=== PATIENT | male | born 1960 | race Caucasian/White ===

== ENCOUNTER 2019-11-21 14:06 | Emergency (ER) | payer OTHER, SELFPAY ==
--- NOTE | ~2019-11-21 | XR_ITS ---
EXAMINATION: XR tibia fibula RT 2V DATE: 11/21/2019 14:50 INDICATION: Right lower leg pain. TECHNIQUE: 2 views of right tibia and fibula on 4 radiographs were obtained. COMPARISON: None. FINDINGS: Bone alignment is normal. No fracture. There is an intramedullary ismael in right femur. There is mild right knee osteoarthritis. There is a laceration of the lateral lower leg. No radiopaque for eign body. IMPRESSION: 1. No fracture or radiopaque foreign body. Reviewed, dictated and finalized at location A.
[2019-11-21 14:08] VITALS: BP 172/96; PULSE 86; RESP 16; TEMP 37; O2SAT 98
--- NOTE | 2019-11-21 14:37 | ED.LOWEXIN ---
HPI - Extremity Injury (Lower) General Chief Complaint: Extremity Injury, Lower <Paramjit Solo PA-C - Last Filed: 11/21/19 14:40> Stated Complaint: right leg injury <Paramjit Solo PA-C - Last Filed: 11/21/19 14:40> Time Seen by Provider: 11/21/19 14:09 <Paramjit Solo PA-C - Last Filed: 11/21/19 14:40> Source: patient and family <Paramjit Solo PA-C - Last Filed: 11/21/19 14:40> Mode of arrival: ambulatory <Paramjit Solo PA-C - Last Filed: 11/21/19 14:40> Limitations: no limitations <Paramjit Solo PA-C - Last Filed: 11/21/19 14:40> History of Present Illness HPI Narrative: Patient is a 59-year-old male who presents with puncture wound to the right leg that occurred just prior to arrival presents per EMS patient was cutting down a tree when he fell back on a piece of wood that punctured the posterior calf was able to remove the wood notes aching pain worse with activity and movement patient has not been seen for this complaint patient notes his tetanus is up-to-date patient denies other injuries or complaints and presents in no distress <Paramjit Solo PA-C - Last Filed: 11/21/19 14:40> Related Data Home Medications: Home Medications Medication Instructions Recorded Confirmed felodipine mg PO 11/21/19 lisinopril-hydrochlorothiazide tablet 11/21/19 metformin mg PO 11/21/19 simvastatin mg 11/21/19 11/21/19 <Paramjit Solo PA-C - Last Filed: 11/21/19 14:40> Allergies/Adverse Reactions: Allergies Allergy/AdvReac Type Severity Reaction Status Date / Time No Known Allergies Allergy Verified 11/21/19 14:11 <Paramjit Solo PA-C - Last Filed: 11/21/19 14:40> Review of Systems Review of Systems: All systems reviewed & are unremarkable except as noted in HPI and below <Paramjit Solo PA-C - Last Filed: 11/21/19 14:40> PMFSH Past Medical History Medical History: Medical History Diabetes mellitus <Paramjit Solo PA-C - Last Filed: 11/21/19 14:40> Social History Social History: Social History (Updated 11/21/19 @ 14:39 by Paramjit Solo PA-C) Smoking status: Current every day smoker <Paramjit Solo PA-C - Last Filed: 11/21/19 14:40> Exam Narrative: Exam Narrative: GENERAL: Well-appearing, well-nourished, and in no acute distress. HEAD: Normocephalic, atraumatic. EYES: PERRLA and EOMI. ENT: Nares clear, no rhinorrhea or epistaxis. Mucous membranes moist. EXTREMITIES: Normal range of motion. No edema. 1 cm superficial puncture wound to the posterior right calf SKIN: Warm, dry, no rash. Cranial nerves II through XII grossly intact. Neurovascularly intact PSYCH: Normal mood and affect. <Paramjit Solo PA-C - Last Filed: 11/21/19 14:40> Course Vital Signs Vital signs: Vital Signs Temperature 98.6 F 11/21/19 14:08 Pulse Rate 86 11/21/19 14:08 Respiratory Rate 16 11/21/19 14:08 Blood Pressure 172/96 H 11/21/19 14:08 Pulse Oximetry 98 11/21/19 14:08 Temperature 98.6 F 11/21/19 14:08 Pulse Rate 86 11/21/19 14:08 Respiratory Rate 16 11/21/19 14:08 Blood Pressure 172/96 H 11/21/19 14:08 Pulse Oximetry 98 11/21/19 14:08 <Paramjit Solo PA-C - Last Filed: 11/21/19 14:40> Vital Signs Temperature 98.6 F 11/21/19 14:08 Pulse Rate 86 11/21/19 14:08 Respiratory Rate 16 11/21/19 14:08 Blood Pressure 172/96 H 11/21/19 14:08 Pulse Oximetry 98 11/21/19 14:08 Temperature 98.6 F 11/21/19 14:08 Pulse Rate 86 11/21/19 14:08 Respiratory Rate 16 11/21/19 14:08 Blood Pressure 172/96 H 11/21/19 14:08 Pulse Oximetry 98 11/21/19 14:08 <Luna Lofton MD - Last Filed: 11/21/19 15:40> Discharge Plan Discharge Prescriptions: No Action lisinopril-hydrochlorothiazide 20-12.5 mg tablet RF: 0 felodipine 5 mg tablet extended release 24 hr PO RF
== END 2019-11-21 16:01 | disposition home or self-care (01) ==
PROVIDERS: Emergency Provider Emergency Medicine; PCP Internal Medicine
DX: S81.831A Puncture wound without foreign body, right lower leg, initial encounter (principal); E11.9 Type 2 diabetes mellitus without complications; Z79.84 Long term (current) use of oral hypoglycemic drugs; F17.200 Nicotine dependence, unspecified, uncomplicated; W01.118A Fall on same level from slipping, tripping and stumbling with subsequent striking against other sharp object, initial encounter; Y93.H2 Activity, gardening and landscaping
CPT/HCPCS: 73590; 99283

== ENCOUNTER 2020-09-18 12:10 | Outpatient (CLI) | payer OTHER, SELFPAY ==
--- NOTE | ~2020-09-18 | XR_ITS ---
EXAMINATION: XR knee RT 3V DATE: 09/18/2020 12:49 INDICATION: Right knee pain. TECHNIQUE: 3 views of right knee were obtained. COMPARISON: Right tibia and fibula radiographs 11/21/2019 FINDINGS: Bone alignment is normal. No fracture. Partially visualized is an intramedullary ismael in dis christi femur. There is mild osteoarthritis of lateral and patellofemoral compartments characterized by m arginal osteophytes. There is a small knee joint effusion. IMPRESSION: 1. Mild right knee osteoarthritis. 2. Small right knee joint effusion. Reviewed, dictated and finalized at location A.
[2020-09-18 12:24] LABS: Basophils Absolute Auto 0.05 K/mm3 (0.00-0.10); Basophils Percent Auto 0.8 % (0.0-1.0); Eosinophils Absolute Auto 0.27 K/mm3 (0.02-0.50); Eosinophils Percent Auto 4.6 % (1.0-6.0); Hematocrit 46.3 % (40.0-54.0); Hemoglobin 15.6 g/dL (14.0-18.0); Immature Granulocyte Absolute 0.01 K/mm3 (0.00-0.00); Immature Granulocyte Percent A 0.2 % (0.0-0.0); Immature Platelet Fraction Pct 2.2 % (1.0-7.0); Lymphocytes Absolute Auto 1.51 K/mm3 (1.10-4.50); Lymphocytes Percent Auto 25.6 % (18.0-42.0); Mean Corpuscular HGB Conc 33.7 g/dL (32.0-36.0); Mean Corpuscular Hemoglobin 31.5 pg (27.0-31.0); Mean Corpuscular Volume 93.5 fL (78.0-102.0); Monocytes Absolute Auto 0.44 K/mm3 (0.10-0.90); Monocytes Percent Auto 7.5 % (2.0-11.0); Neutrophils Absolute Auto 3.6 K/mm3 (1.7-7.2); Neutrophils Percent Auto 61.3 % (50.0-70.0); Platelet Count Result 130 K/mm3 (150-420); Red Blood Count 4.95 M/mm3 (4.70-6.10); Red Cell Distribution Width 12.7 % (11.6-14.4); White Blood Count 5.9 K/mm3 (4.8-10.8)
[2020-09-18 12:52] LABS: Alanine Aminotransferase 56 U/L (16-63); Albumin Level 3.9 g/dL (3.4-5.0); Alkaline Phosphatase 87 U/L (46-116); Anion Gap 6 mmol/L (8-16); Aspartate Amino Transferase 26 U/L (15-37); Bilirubin,Total 0.5 mg/dL (0.00-1.00); Blood Urea Nitrogen 16 mg/dL (7-18); CRP 0.7 mg/dL (0.0-0.9); Calcium 9.1 mg/dL (8.5-10.1); Carbon Dioxide 29 mmol/L (21-32); Chloride 97 mmol/L (98-108); Estimated Glomerular Filt Rate > 60; Osmolality Calculated 293 mOsm/kg (285-295); Potassium 3.6 mmol/L (3.5-5.1); Sodium 132 mmol/L (136-145); Total Protein 7.5 g/dL (6.4-8.2); Uric Acid 2.7 mg/dL (3.5-7.2)
[2020-09-18 13:23] LABS: Glucose 417 mg/dL (70-99)
== END 2020-09-18 12:11 | disposition home or self-care (01) ==
LOC: CHSLAB 12:13
PROVIDERS: PCP Internal Medicine; Visit Provider Nurse Practitioner Family
DX: M25.561 Pain in right knee (principal)
CPT/HCPCS: 36415; 73562; 80053; 84550; 85025; 85055; 86140

== ENCOUNTER → 2020-10-17 17:51 | Outpatient (CLI) | payer OTHER, SELFPAY ==
--- NOTE | ~2020-10-17 | MR_ITS ---
EXAMINATION: MR knee RT wo con DATE: 10/17/2020 19:01 INDICATION: Right knee pain TECHNIQUE: Magnetic resonance imaging (MRI) of the right knee was performed without intravenous contr ast. Sequences included coronal PD-weighted FSE, coronal PD-weighted FS FSE, sagittal T2-weighted FS E, sagittal PD-weighted FS FSE and axial PD weighted fat saturated FSE. COMPARISON: None. FINDINGS: Medial compartment: Radial tear near the posterior root of the medial meniscus. Extensive chondral ulceration with chondr al surface irregularity and in places deep cartilage loss with underlying cortical irregularity, suba rticular edema and cystic change at the anterior to central weightbearing medial femoral condyle and along the anterior medial margins of the medial tibial plateau. Small marginal osteophytes along the posterior tibial plateau. Lateral compartment: Lateral meniscus is normal. Mild partial thickness cartilage loss with smooth chondral surface and wi thout degenerative subchondral changes along the weightbearing lateral femoral condyle and lateral si de of the tibial plateau. Patellofemoral compartment: Extensive deep chondral ulceration and fissuring with underlying cortical irregularity and prominent subarticular edema and cystic change centered at the patellar apical ridge and immediately adjacent m edial and lateral patellar facets. Additional chondral swelling and deep fissuring without degenerati ve subchondral changes along the inferolateral quadrant of the lateral patellar facet. Additional par tial thickness chondral ulceration and deep fissuring along the trochlear groove and medial trochlea. Small central subchondral osteophyte at the central aspect of the medial trochlea. Ligaments and tendons: Anterior and posterior cruciate ligaments are normal. The medial collateral ligament and fibular teetee ateral ligament complex are normal. Extensor mechanism is normal with bands of magic angle artifact e xtending across the distal patellar tendon where there is some laxity with a small fold. The visualiz ed medial and lateral hamstring tendons as well as the iliotibial band are normal. Fluid: Moderate-sized right knee joint effusion. Mild synovitis at the margin of the suprapatellar pouch and more prominently along the posterior margin of Hoffa's fat pad. Subcutaneous edema about the knee mo st prominent anteriorly but without a discrete bursal fluid collection. Osseous/other: Magnetic paz artifact in the distal metadiaphyseal region of the femur likely related to a metalli c ismael which is partially visualized on the prior radiographs. No fracture or pathologic marrow replac ing process. IMPRESSION: 1. Radial tear near the posterior root of the medial meniscus. 2. Tricompartmental osteoarthritis, moderate severity with extensive high-grade chondromalacia in the medial and lateral compartments and mild with moderate grade chondromalacia in the lateral compartme nt. 3. Likely reactive moderate sized right knee joint effusion. Reviewed, dictated and finalized at location A. IMPRESSION: 1. Radial tear near the posterior root of the medial meniscus. 2. Tricompartmental osteoarthritis, moderate severity with extensive high-grade chondromalacia in the medial and lateral compartments and mild with moderate g rade chondromalacia in the lateral compartment. 3. Likely reactive moderate sized right knee joint effusion.
== END ==
PROVIDERS: PCP Internal Medicine; Visit Provider Internal Medicine
DX: S83.241A Other tear of medial meniscus, current injury, right knee, initial encounter (principal); M17.11 Unilateral primary osteoarthritis, right knee; M25.461 Effusion, right knee; M94.261 Chondromalacia, right knee
CPT/HCPCS: 73721

== ENCOUNTER 2020-11-28 10:47 | Outpatient (CLI) | payer OTHER, SELFPAY ==
--- NOTE | ~2020-11-28 | US_ITS ---
EXAMINATION: US venous doppler LE RT DATE: 11/28/2020 11:29 INDICATION: Right lower limb swelling TECHNIQUE: Jeffrey scale images without and with compression and Doppler images of the right lower extre mity veins were obtained. COMPARISON: None FINDINGS: The right common femoral vein, profunda femoral vein, femoral vein, popliteal vein, peronea l trunk, posterior tibial veins, and greater saphenous vein are patent. IMPRESSION: 1. Patent right lower extremity veins. No evidence of deep venous thrombosis. Reviewed, dictated and finalized at location A.
== END 2020-11-28 10:48 | disposition home or self-care (01) ==
LOC: CHSIMG 10:48
PROVIDERS: PCP Internal Medicine; Visit Provider Orthopaedic Surgery
DX: R60.0 Localized edema (principal)
CPT/HCPCS: 93971

== ENCOUNTER 2021-05-10 12:15 | Outpatient (CLI) | payer OTHER, SELFPAY ==
[2021-05-10 17:37] LABS: Influenza A QL RT-PCR Negative (Negative); Influenza B QL RT-PCR Negative (Negative); SARS-CoV-2 RNA PCR Negative (Negative)
== END 2021-05-10 12:16 | disposition home or self-care (01) ==
LOC: CHSLAB 12:18
PROVIDERS: PCP Internal Medicine; Visit Provider Internal Medicine
DX: J06.9 Acute upper respiratory infection, unspecified (principal); Z20.822 Contact with and (suspected) exposure to COVID-19
CPT/HCPCS: 87502; C9803; U0003; U0005

== ENCOUNTER 2021-08-31 01:01 | Day surgery (SDC) | payer OTHER, SELFPAY ==
[2021-08-28 13:32] VITALS: BMI 42.3
[2021-08-31 07:58] VITALS: BP 150/87; PULSE 71; RESP 18; TEMP 36.2; O2SAT 98; BMI 41.0
[2021-08-31 08:18] LABS: Glucose Point of Care 140 mg/dl (65-105)
[2021-08-31] MEDS: LACTATED RINGERS 1,000 ML 150 ML IV CONT (08:19)
--- NOTE | 2021-08-31 08:32 | P.PNAN_ITS ---
Anes - Initial Pre Proc Eval Procedure: Operation Date: 08/31/21 09:00 Proposed Procedures p Screening Colonoscopy - Tyrel James MD Date/Time: 08/31/21 08:32 Surgeon: Tyrel James MD Pre Op Diagnosis: neoplasm screening Patient Data Age: 60 Gender: M Height: 1.7 m Weight: 118.8 kg Last Vital Signs Temp 36.2 C L 08/31/21 07:58 Pulse 71 08/31/21 07:58 Resp 18 08/31/21 07:58 BP 150/87 H 08/31/21 07:58 Pulse Ox 98 08/31/21 07:58 Allergies Allergy/AdvReac Type Severity Reaction Status Date / Time No Known Allergies Allergy Verified 08/31/21 08:04 Home Medications Medication Instructions Recorded Confirmed Type felodipine 5 mg PO DAILY 11/21/19 08/31/21 History lisinopril-hydrochlorothiazide 2 tablet PO DAILY 11/21/19 08/31/21 History metformin 500 mg PO BID 11/21/19 08/31/21 History simvastatin 20 mg PO DAILY 11/21/19 08/31/21 History meloxicam 15 mg PO DAILY 08/27/21 08/31/21 History semaglutide [Rybelsus] 14 mg PO DAILY 08/27/21 08/31/21 History Laboratory Tests 08/31/21 08:10 POC Capillary Glucose 140 mg/dl H mg/dl (65-105) Patient hx anesthesia problems: none Family hx anesthesia problems: none Results Review: All pre-operative results and documents have been reviewed as part of the pre-operative evaluation. [facility] Past Medical History Medical History Diabetes mellitus GERD (gastroesophageal reflux disease) Hyperlipidemia Hypertension KISHA (obstructive sleep apnea) Social History Social History Smoking packs per day: 1 Smoking cigarettes per day: 20.0 Smoking status: Current some day smoker Tobacco type: cigarettes Substance use type: does not use Living arrangements: with family Spiritual care concerns: No Anes - Eval Final PreProcedure Day of Procedure 08/31/21 08:32 Patient weight: morbidly obese Heart: regular rate and rhythm Lungs: decreased breath sounds Airway: Mallampati scale class II Neurological: alert and oriented Last oral intake: >/= 8 hours ASA classification: III Emergent: no Anesthetic plan: proceed Anesthesia type and monitoring: general GIVS and standard monitoring Results Review: All pre-operative results and documents have been reviewed as part of the pre-operative evaluation. Informed Consent: The patient's anesthetic plan and its attendant risks and benefits were discussed with the patient/family/POA. Questions were solicited and answers provided to the satisfaction of the patient/family/POA.
--- NOTE | 2021-08-31 08:43 | PM.HPGS ---
History of Present Illness History of Present Illness Consent: Risks, benefits, and alternatives have been discussed and questions answered. Patient agrees to proceed with procedure. Chief complaint: neoplasm screening Narrative: Kevin Do Jr. is a 60 year old male here for screening colonoscopy, last one in 2010 Review of Systems Constitutional: Constitutional: Denies headache(s) and Denies weakness Eyes: Eyes: Denies blurry vision ENT: Reports Normal hearing present, Denies headache(s) and Denies neck pain Cardiovascular: Cardiovascular: Denies chest pain and Denies dyspnea Respiratory: Respiratory: Denies dyspnea Gastrointestinal: Gastrointestinal: Reports no additional gastrointestinal complaints Genitourinary: Genitourinary: Denies dysuria Musculoskeletal: Musculoskeletal: Denies neck pain Integumentary/Breasts: Skin/Breast: Denies dry skin Neurologic: Reports Normal hearing present, Denies headache(s) and Denies weakness Psychiatric: Psychiatric: Denies anxiety Endocrine: Endocrine: Denies change in body appearance Hematologic/Lymphatic: Hematologic/Lymphatic: Denies easy bleeding Allergic/Immunologic: Allergic/Immunologic: Denies urticaria PMFSH Past Medical History Medical History (Updated 08/31/21 @ 08:43 by Tyrel James MD) Colon cancer screening Diabetes mellitus GERD (gastroesophageal reflux disease) Hyperlipidemia Hypertension KISHA (obstructive sleep apnea) Social History Social History Smoking packs per day: 1 Smoking cigarettes per day: 20.0 Smoking status: Current some day smoker Tobacco type: cigarettes Substance use type: does not use Living arrangements: with family Spiritual care concerns: No Meds Home Medications and Allergies Home Medications Medication Instructions Recorded Confirmed Type felodipine 5 mg PO DAILY 11/21/19 08/31/21 History lisinopril-hydrochlorothiazide 2 tablet PO DAILY 11/21/19 08/31/21 History metformin 500 mg PO BID 11/21/19 08/31/21 History simvastatin 20 mg PO DAILY 11/21/19 08/31/21 History meloxicam 15 mg PO DAILY 08/27/21 08/31/21 History semaglutide [Rybelsus] 14 mg PO DAILY 08/27/21 08/31/21 History Allergies Allergy/AdvReac Type Severity Reaction Status Date / Time No Known Allergies Allergy Verified 08/31/21 08:04 Vital Signs Vital Signs - 24 hr 08/31/21 07:58 Temperature 97.2 F L Pulse Rate 71 Respiratory Rate 18 Blood Pressure 150/87 H Pulse Oximetry 98 Exam Const: General: comfortable and no acute distress HENMT: General nose exam: Normal nares present Eyes: General: appearance normal, both eyes and all related structures Neck: Neck: no JVD Resp: Auscultation: clear to auscultation bilaterally Cardio: Rate: regular rate Rhythm: regular rhythm GI: Inspection: non-distended GI Palp: Yes Soft to palpation Skin: General skin exam: normal color Neuro: General: gait normal Speech: normal speech Extrem: General: normal to inspection Psych: Mental Status: mental status grossly normal Assessment and Plan Assessment and plan (1) Colon cancer screening: Code(s): Z12.11 - Encounter for screening for malignant neoplasm of colon Status: Acute Assessment and Plan: colonoscopy
[2021-08-31 09:08] VITALS: BP 130/86; PULSE 59; RESP 18; O2SAT 97
[2021-08-31 09:18] VITALS: BP 129/85; PULSE 58; RESP 23; O2SAT 96
[2021-08-31 09:28] VITALS: BP 133/88; PULSE 56; RESP 12; O2SAT 98
== END 2021-08-31 09:34 | disposition home or self-care (01) ==
PROVIDERS: PCP Internal Medicine; Visit Provider Internal Medicine Gastroenterology
PROC: 0DJD8ZZ Inspection of Lower Intestinal Tract, Via Natural or Artificial Opening Endoscopic (ICD-10-PCS; CPT 45378; principal; 2021-08-31 09:00)
DX: Z12.11 Encounter for screening for malignant neoplasm of colon (principal); D12.5 Benign neoplasm of sigmoid colon; K57.30 Diverticulosis of large intestine without perforation or abscess without bleeding; K64.8 Other hemorrhoids; E11.9 Type 2 diabetes mellitus without complications; K21.9 Gastro-esophageal reflux disease without esophagitis; E78.5 Hyperlipidemia, unspecified; I10 Essential (primary) hypertension; G47.33 Obstructive sleep apnea (adult) (pediatric); F17.210 Nicotine dependence, cigarettes, uncomplicated; E66.01 Morbid (severe) obesity due to excess calories; Z68.41 Body mass index [BMI] 40.0-44.9, adult
CPT/HCPCS: 45385; 82948; 88305; J2704; J7120

== ENCOUNTER 2022-01-15 14:16 | Outpatient (CLI) | payer OTHER, SELFPAY ==
[2022-01-15 15:14] LABS: SARS-CoV-2 Ag Negative (Negative)
[2022-01-15 15:52] LABS: SARS-CoV-2 RNA PCR Positive (Negative)
== END 2022-01-15 14:17 | disposition home or self-care (01) ==
LOC: CHSLAB 14:21
PROVIDERS: PCP Internal Medicine; Visit Provider Internal Medicine
DX: U07.1 COVID-19 (principal); J06.9 Acute upper respiratory infection, unspecified
CPT/HCPCS: 87426; C9803; U0003; U0005

== ENCOUNTER 2022-01-18 14:03 | Emergency (ER) | payer OTHER, SELFPAY ==
--- NOTE | ~2022-01-18 | XR_ITS ---
EXAMINATION: XR chest 2V DATE: 01/18/2022 14:59 INDICATION: Shortness of breath. COVID-19 positive. TECHNIQUE: Frontal and lateral views of the chest were obtained. COMPARISON: Chest 2 views 07/26/2016 FINDINGS: A calcified left lung nodule and calcified left hilar lymph nodes are consistent with old g ranulomatous disease. No pleural effusion or pneumothorax. The heart size is normal. IMPRESSION: 1. No acute cardiopulmonary disease. Reviewed, dictated and finalized at location A.
[2022-01-18 14:25] VITALS: BP 129/87; PULSE 77; RESP 17; TEMP 36.8; O2SAT 96
[2022-01-18 14:28] VITALS: O2SAT 96
--- NOTE | 2022-01-18 14:57 | ED.URI ---
HPI - URI/Sore Throat General Chief Complaint: Upper Respiratory Infection Stated Complaint: dr beltre sent here for covid Source: patient and RN notes reviewed Mode of arrival: ambulatory Limitations: no limitations History of Present Illness HPI Narrative: patient tested positive for COVID on Friday 3 days ago now. His doctor told him that if he began having worsening symptoms shortness of breath that he should come to the emergency room and have his oxygenation checked. Today he called his doctor the doctor sent him over for a chest x-ray and to be evaluated in the ER. Patient is already on Paxlovid MD elicited complaint: cough and sore throat Onset (ago): day(s) (3) Consistency: intermittent Severity: moderate Description of mucous: clear Exacerbating factors: nothing Relieving factors: nothing Associated symptoms: fever, myalgias, headache, cough and nausea Related Data Home Medications Medication Instructions Recorded Confirmed felodipine 5 mg tablet,extended 5 mg PO DAILY 11/21/19 01/18/22 release 24 hr lisinopril 20 2 tablet PO DAILY 11/21/19 01/18/22 mg-hydrochlorothiazide 12.5 mg tablet metformin 500 mg tablet,extended 500 mg PO BID 11/21/19 01/18/22 release 24 hr simvastatin 20 mg tablet 20 mg PO DAILY 11/21/19 01/18/22 meloxicam 15 mg tablet 15 mg PO DAILY 08/27/21 01/18/22 semaglutide 14 mg tablet (Rybelsus) 14 mg PO DAILY 08/27/21 01/18/22 Allergies Allergy/AdvReac Type Severity Reaction Status Date / Time No Known Allergies Allergy Verified 01/18/22 14:29 Review of Systems Review of Systems: All systems reviewed & are unremarkable except as noted in HPI and below PMFSH Past Medical History Medical History Colon cancer screening Diabetes mellitus GERD (gastroesophageal reflux disease) Hyperlipidemia Hypertension KISHA (obstructive sleep apnea) Social History Social History Smoking packs per day: 1 Smoking cigarettes per day: 20.0 Smoking status: Current some day smoker Tobacco type: cigarettes Substance use type: does not use Spiritual care concerns: No Exam Const: General: healthy appearing, no acute distress and alert Nutritional Appearance: well nourished Orientation/consciousness: patient oriented x3 Limitations: no limitations HENMT: Head: normal to inspection Ears: external ears normal Eyes: Conjunctivae: conjunctivae normal Pupils: Equal, round and reactive pupils present EOM: EOMs intact bilaterally Neck: Neck: normal visual inspection Resp: Effort & Inspection: normal respiratory effort Auscultation: rhonchi ( Clears with cough) left lower Cardio: Rate: regular rate Rhythm: regular rhythm GI: GI Palp: Yes Soft to palpation and No Tenderness to palpation present (GI) Auscultation: normal bowel sounds Back/Spine/Pelvis: Cervical Spine: cervical ROM normal Thoracic/Lumbar Spine: thoraco-lumbar ROM normal Skin: General skin exam: normal color Rashes: no rashes Neuro: General: patient oriented x3, moves all extremities, no focal motor deficits and CN's II-XI intact bilaterally Speech: normal speech Gait exam (Neuro): Normal gait present Extrem: General: normal to inspection and no clubbing, cyanosis or edema Psych: Mental Status: mental status grossly normal Affect: normal affect Attitude: cooperative Course Vital Signs Vital signs: Vital Signs Temperature 36.8 C 01/18/22 14:25 Pulse Rate 77 01/18/22 14:25 Respiratory Rate 17 01/18/22 14:25 Blood Pressure 129/87 01/18/22 14:25 Pulse Oximetry 96 01/18/22 14:25 Oxygen Delivery Room Air 01/18/22 14:25 Temperature 36.8 C 01/18/22 15:24 Pulse Rate 73 01/18/22 15:24 Respiratory Rate 17 01/18/22 15:24 Blood Pressure 132/65 01/18/22 15:24 Pulse Oximetry 95 01/18/22 15:24 Oxygen Delivery Room Air 01/18/22 15:24 Discharge Plan Dis
[2022-01-18 15:24] VITALS: BP 132/65; PULSE 73; RESP 17; TEMP 36.8; O2SAT 95
== END 2022-01-18 15:25 | disposition home or self-care (01) ==
PROVIDERS: Emergency Provider Emergency Medicine; PCP Internal Medicine
DX: U07.1 COVID-19 (principal)
CPT/HCPCS: 71046; 99283

== ENCOUNTER 2022-01-20 14:27 | Outpatient (CLI) | payer OTHER, SELFPAY ==
[2022-01-20 17:28] LABS: SARS-CoV-2 RNA PCR Positive (Negative)
== END 2022-01-20 14:28 | disposition home or self-care (01) ==
LOC: CHSLAB 14:29
PROVIDERS: PCP Internal Medicine; Visit Provider Internal Medicine
DX: U07.1 COVID-19 (principal)
CPT/HCPCS: 87426; C9803; U0003; U0005

== ENCOUNTER 2022-01-23 13:26 | Outpatient (CLI) | payer OTHER, SELFPAY ==
[2022-01-23 14:25] LABS: SARS-CoV-2 Ag Positive (Negative)
== END 2022-01-23 13:27 | disposition home or self-care (01) ==
LOC: CHSLAB 13:31
PROVIDERS: PCP Internal Medicine; Visit Provider Internal Medicine
DX: U07.1 COVID-19 (principal)
CPT/HCPCS: 87426; C9803

== ENCOUNTER 2022-06-27 09:46 | Outpatient (CLI) | payer OTHER, SELFPAY ==
--- NOTE | ~2022-06-27 | CT_ITS ---
EXAMINATION:CT lung screening DATE: 06/27/2022 10:03 INDICATION: Tobacco dependence. Smoker who quit less than 1 year ago with 37 pack year history. TECHNIQUE: Computed tomography (CT) of the chest was performed without intravenous contrast. Automate d exposure control and iterative reconstruction technique were employed. The dose-length product (DLP ) was 467.02 mGy-cm. COMPARISON: CT abdomen and pelvis 01/05/2010 FINDINGS: There is mild scarring at the lung apices. There is mild emphysema. There is a 19.2 mm nodu le in right lung lower lobe. A calcified left lung nodule is consistent with old granulomatous diseas e. No pleural effusion. There is a 14 mm subcutaneous cyst in superior anterior abdominal wall, likel y a sebaceous cyst. The heart size is normal. There are coronary artery calcifications. No pericardia l effusion. There is a small sliding hiatal hernia. The liver demonstrates surface nodularity, consis tent with cirrhosis. There are changes of cholecystectomy. Partially visualized is a 5.7 m cyst in le ft kidney. Calcifications in the spleen are consistent with old granulomatous disease. There is sever e cervical spondylosis and mild thoracic spondylosis. IMPRESSION: 1. Lung-RADS category 4B: Very suspicious. CT-guided biopsy of the right lower lobe nodule is recomme nded. I called this result to Dr. Ahumada. 2. Cirrhosis of the liver. Reviewed, dictated and finalized at location A. MAN IMPRESSION: 1. Lung-RADS category 4B: Very suspicious. CT-guided biopsy of the right lower lobe nodule is recommended. I called this result to Dr. Ahumada. 2. Cirrhosis of the liver.
== END 2022-06-27 09:47 | disposition home or self-care (01) ==
LOC: CHSIMG 09:47
PROVIDERS: PCP Internal Medicine; Visit Provider Internal Medicine
DX: Z12.2 Encounter for screening for malignant neoplasm of respiratory organs (principal); Z87.891 Personal history of nicotine dependence; R91.8 Other nonspecific abnormal finding of lung field; K74.60 Unspecified cirrhosis of liver
CPT/HCPCS: 71271

== ENCOUNTER 2022-07-09 14:40 | Outpatient (CLI) | payer OTHER, SELFPAY ==
--- NOTE | ~2022-07-09 | US_ITS ---
EXAMINATION: US retroperitoneal limited DATE: 07/09/2022 15:47 INDICATION: Bilateral renal cysts TECHNIQUE: Multiple ultrasound grayscale images of the kidneys were obtained. COMPARISON: Ultrasound dated 07/17/[address] dated 01/05/2010 FINDINGS: The right kidney measures 11.7 x 5.6 x 6.1 cm. The left kidney measures 15.6 x 6.1 x 4.8 cm inclusive of a 6.6 cm anechoic exophytic cyst at the upper pole. Additional 12 mm anechoic cyst at the upper p ole of the left kidney. 2.2 cm anechoic cyst at the lower pole of the right kidney. The kidneys demon strate normal cortical echogenicity. There is no hydronephrosis in either kidney. No stones identifi ed. The bladder is normal with bilateral ureteral jets visualized on color Doppler. IMPRESSION: 1. Bilateral renal cysts, the largest measuring 6.6 cm at the left kidney. Otherwise normal kidneys with no hydronephrosis. Reviewed, dictated and finalized at location A. ER STRIPPER IMPRESSION: 1. Bilateral renal cysts, the largest measuring 6.6 cm at the left kidney. Oth erwise normal kidneys with no hydronephrosis.
== END 2022-07-09 14:41 | disposition home or self-care (01) ==
LOC: CHSIMG 14:41
PROVIDERS: PCP Internal Medicine; Visit Provider Internal Medicine
DX: N28.1 Cyst of kidney, acquired (principal)
CPT/HCPCS: 76775

== ENCOUNTER 2022-08-15 01:33 | Outpatient (CLI) | payer OTHER, SELFPAY ==
[2022-07-25 12:50] VITALS: BMI 45.1
--- NOTE | 2022-07-25 12:51 | PC.NURSE ---
Addendum entered by Ct Robins RN 08/07/22 08:39: PT TO ARRIVE AT 0900 ON 08/15/22 FOR PROCEDURE AT 1100. Original Note: Pre Radiology instructions [facility] on date 08/01/22. Procedure Time: 1100. YOU MAY BE MONITORED AT HOSPITAL FOR UP TO 4 HOURS AFTER YOUR PROCEDURE. 1-2 visitors will be allowed to accompany the patient into the hospital. ?The visitor will be instructed to remain with patient at all times or MAY BE ASKED TO leave the building due to restrictions.? We will allow the visitor to come back to the postoperative area when patient is ready.? NO children visitors allowed at this time. You and your visitor will be asked to self-screen and do not enter if you have any COVID symptoms. A mask is OPTIONAL within the hospital. Patients are to have no food or drink 6 hours prior to procedure time Driving will be restricted after the procedure, you must have a person to drive you home. Labs will be drawn in preop area and once reviewed, you will be taken to radiology area for procedure. When the procedure is completed, you will be taken to outpatient where you will be monitored for several hours. You may have one visitor in this area. Other than holding anti-coagulants, patient may take other medication(s) as scheduled. Prior to your appointment date patients are instructed to hold anti-coagulants after discussing with ordering provider to stop. If unable to discontinue anti-coagulants please notify radiologist. ? No aspirin or warfarin (Coumadin) for 7 days prior to the procedure. ? No clopidogrel (Plavix), ticagrelor (Brilinta), prasugrel (Effient) or dabigatran (Pradaxa) for 5 days prior to the procedure. ? No rivaroxaban (Xarelto), apixaban (Eliquis), dipyridamole (Aggrenox or Persantine) or cilostazol (Pletal) for 2 days prior to the procedure. Medications to discontinue per physician: N/A Date to take last dose: N/A Please leave all valuables, including medications, at home the day of procedure. The hospital will not accept responsibility for valuables. Wear comfortable, loose fitting clothing.? Follow any additional instructions given to you from ordering provider. Telephone instructions given to PT - AILYN HART and asked if any additional questions and then verbalized understanding. Patient advised to call scheduling provider office or registration scheduling [phone] if any additional questions.
--- NOTE | 2022-08-07 08:39 | PC.NURSE ---
Spoke with pt's - states pt still has chest and head congestion with cough that started around 16. Has had 2 negative home Covid tests. calling primary dr when office opens later today. New arrival date/instructions reviewed with .
[2022-08-15] VITALS (12 sets, daily range): BP systolic 132–161; BP diastolic 79–99; PULSE 53–62; RESP 16–18; TEMP 36.9; O2SAT 97–100
--- NOTE | ~2022-08-15 | XR_ITS ---
EXAMINATION: XR chest 1V portable DATE: 08/15/2022 12:18 INDICATION: Right lung nodule status post percutaneous biopsy. TECHNIQUE: A single frontal view of the chest was obtained. COMPARISON: Chest single view 11:19 AM FINDINGS: A calcified left lung nodule is consistent with old granulomatous disease. No pleural effus ion or pneumothorax. The heart size is normal. IMPRESSION: 1. No acute cardiopulmonary disease. Reviewed, dictated and finalized at location A. DESIGNER
--- NOTE | ~2022-08-15 | XR_ITS ---
EXAMINATION: XR chest 1V portable DATE: 08/15/2022 14:32 INDICATION: Right lung nodule status post percutaneous biopsy. TECHNIQUE: A single frontal view of the chest was obtained. COMPARISON: Chest single view at 12:15 PM FINDINGS: A calcified left lung nodule is consistent with old granulomatous disease. No pleural effus ion or pneumothorax. The heart size is normal. IMPRESSION: 1. No acute cardiopulmonary disease. Reviewed, dictated and finalized at location A. MATIC CHIEF
--- NOTE | ~2022-08-15 | CT_ITS ---
EXAMINATION: CT biopsy lung w/imaging DATE: 08/15/2022 11:21 INDICATION: Right lung lower lobe nodule. TECHNIQUE: The procedure including the risks, benefits, and alternatives and possibility of chest tub e placement were discussed with the patient. Risks discussed included infection, hemorrhage, approxim ately 1/3 risk of pneumothorax, approximately 1/10 risk of pneumothorax severe enough to warrant ches t tube placement, and rarely . The patient understood the risks and agreed to proceed. The patie nt was placed prone. The skin overlying the right chest was prepped and draped in sterile fashion. Anesthetic was administered with 1% lidocaine subcutaneously. A 19 gauge outer needle was advanced u nder CT guidance to the lesion of interest. A 20 gauge core biopsy needle was then used to obtain 3 c ore biopsy specimens. The needle was removed and the entry site was cleaned and dressed. The mA was a djusted according to patient size. Iterative reconstruction technique was employed. The dose-length p roduct was 157.08 mGy-cm. There were no immediate complications. FINDINGS: CT images demonstrate the outer needle tip adjacent to a 2.2 cm nodule in right lung lower lobe. IMPRESSION: 1. CT-guided core needle biopsy of a nodule in right lung lower lobe. Reviewed, dictated and finalized at location A. RINTENDENT GREENS
--- NOTE | ~2022-08-15 | XR_ITS ---
EXAMINATION: XR chest 1V DATE: 08/15/2022 11:21 INDICATION: Right lung nodule status post percutaneous biopsy. TECHNIQUE: A single frontal view of the chest was obtained. COMPARISON: Chest 2 views 01/18/2022 FINDINGS: A calcified left lung nodule is consistent with old granulomatous disease. No pleural effus ion or pneumothorax. The heart size is normal. IMPRESSION: 1. No acute cardiopulmonary disease. Reviewed, dictated and finalized at location A. F PACKING MACHINE OPERATOR
[2022-08-15 09:25] LABS: Immature Platelet Fraction Pct 5.7 % (0.9-11.2); Mean Platelet Volume 10.3 fl (7.4-10.4); Platelet Count Result 124 k/mm3 (150-375)
[2022-08-15 09:37] LABS: Prothrombin Time 12.3 Seconds (11.1-14.7)
[2022-08-15 12:07] LABS: Glucose Point of Care 137 mg/dl (65-105)
== END 2022-08-15 14:54 | disposition home or self-care (01) ==
PROVIDERS: Radiology Diagnostic Radiology; PCP Internal Medicine; Referring Provider Internal Medicine Critical Care Medicine; Visit Provider Radiology Diagnostic Radiology
PROC: BB24ZZZ Computerized Tomography (CT Scan) of Bilateral Lungs (ICD-10-PCS; CPT 32408; principal; 2022-08-15 11:00)
DX: R91.1 Solitary pulmonary nodule (principal); C34.91 Malignant neoplasm of unspecified part of right bronchus or lung
CPT/HCPCS: 32408; 36415; 71045; 82948; 85049; 85055; 85610; 88305; 88342

== ENCOUNTER 2022-08-30 14:36 | Outpatient (CLI) | payer OTHER, SELFPAY ==
--- NOTE | 2022-09-03 20:50 | WPDPFTINT ---
PFT Procedure Performed PFT Procedure Performed Spirometry with Pre/Post Bronchodilator Plethysmography (Lung Vol) Diffusing Cap (DLCO) Flow Vol Loop PFT Interpretation DOS: 08/30/2022 REQUESTING: Cecilia Dobson MD REASON FOR TESTING: history of smoking; lung mass PULMONARY FUNCTION TESTS Results are reliable and reproducible. Spirometry: pre bronchodilator FEV1 is 3.10 L, 97%, normal. Pre bronchodilator FVC is 4.25 L, 104%, normal. FEV1/ FVC ratio 73%, normal. After bronchodilator, FEV1 does not Change. After bronchodilator the FVC dropped by 6%, non statistically significant change. Lung volumes: Total lung capacity 6.24 L, 100%, normal. Residual volume 1 point 9 4 L, 96%, normal. RV/TLC 31%, normal. Airway resistance is 1.83, 85% predicted, normal. Diffusion: DLCO 29.1, 108%, normal. DLCO / VA 5.19, 115%, normal. Flow volume loop: Normal. IMPRESSION: This study shows normal spirometry, normal lung volumes and diffusion. No change after bronchodilator administration. Cecilia Dobson MD
--- NOTE | 2022-09-03 20:54 | WPDSIXMINUTE ---
Six Minute Walk Procedure Procedure Performed Pulmonary Stress Test (6 min walk) Six Minute Walk Six Minute Walk: DOS: ? 08/30/2022 ? REQUESTING:? Cecilia Dobson MD ? REASON FOR TESTING: ? history of smoking; lung mass SIX MINUTE WALK This study was conducted per ATS guidelines. The patient was tested while breathing room air. He did not stop during the testing. Initial saturation was 94% and initial pulse was 81. Saturation was maintained between 90% and 95%. Pulse increased to 108 beats per minute. During recovery saturation returned to baseline, 94% and heart rate decreased to 97 beats per minute. Distance walked is 426.7 m/ 1400 ft which is adequate for his age. IMPRESSION: this is a normal walk study. No supplemental oxygen is indicated with exertion.
== END 2022-08-30 14:37 | disposition home or self-care (01) ==
LOC: ANHPFT 14:38
PROVIDERS: PCP Internal Medicine; Visit Provider Internal Medicine Critical Care Medicine
DX: C34.90 Malignant neoplasm of unspecified part of unspecified bronchus or lung (principal); Z87.891 Personal history of nicotine dependence
CPT/HCPCS: 94060; 94618; 94726; 94729

== ENCOUNTER 2022-09-05 08:56 | Outpatient (CLI) | payer OTHER, SELFPAY ==
--- NOTE | ~2022-09-05 | PE_ITS ---
EXAMINATION: PET skull to mid thigh DATE: 09/05/2022 12:40 INDICATION: Solitary pulmonary nodule of the right lower lobe, squamous cell carcinoma on recent biop sy TECHNIQUE: Blood glucose level was 177 mg/dL. 10.294 mCi of 18-fluorodeoxyglucose (18-FDG) was admini stered i.v. Low dose computed tomography (CT) images were acquired from the base of the brain to the proximal thighs for attenuation correction and anatomic localization. Positron emission tomography (P ET) images were acquired in the same distribution beginning 67 minutes after injection. The dose-maicol th product (DLP) was 1194.48 mGy-cm. COMPARISON: CT, 06/27/2022 FINDINGS: Head/neck: No abnormal FDG uptake is identified. Chest: There is a 1.9 cm nodule of the right lower lobe with abnormal FDG uptake and SUV max of 6.9 c orresponding to biopsy-proven malignancy. No additional abnormal thoracic FDG uptake is identified. N o pleural effusion or pneumothorax. No pathologically enlarged thoracic lymph nodes are identified. T he heart size is normal. Abdomen/pelvis/proximal thighs: Physiologic FDG activity is present in the bowel and urinary tract. N o abnormal FDG uptake is identified. The gallbladder is surgically absent. The liver, spleen, pancrea s there is a 2.1 cm cyst of the right kidney. The left kidney is unremarkable. There is calcified ath erosclerosis of the aorta and many of the other arteries. There is a mildly enlarged left periaortic lymph node without associated abnormal FDG uptake, likely reactive. No free intraperitoneal gas or ev idence of bowel obstruction. Musculoskeletal: No abnormal FDG uptake is identified. There is antegrade intramedullary ismael and inte rlocking intratrochanteric screw fixation of the right femur. IMPRESSION: 1. 1.9 cm right lower lobe nodule with abnormal FDG uptake corresponding to the biopsy-proven maligna ncy. No metastatic disease identified. Reviewed, dictated and finalized at location F. IMPRESSION: 1. 1.9 cm right lower lobe nodule with abnormal FDG uptake corresponding to the biopsy-proven malignancy. No metastatic disease identified.
[2022-09-05 09:40] LABS: Glucose Point of Care 177 mg/dl (65-105)
== END 2022-09-05 08:57 | disposition home or self-care (01) ==
PROVIDERS: PCP Internal Medicine; Visit Provider Internal Medicine Critical Care Medicine
DX: C34.90 Malignant neoplasm of unspecified part of unspecified bronchus or lung (principal); R91.1 Solitary pulmonary nodule
CPT/HCPCS: 78815; A9552

== ENCOUNTER 2022-10-29 13:29 | Outpatient (CLI) | payer OTHER, SELFPAY ==
--- NOTE | ~2022-10-29 | XR_ITS ---
XR chest 2V 10/29/2022 13:46 Indication: Right lung cancer. Status post right lower lobectomy 2 weeks ago. Procedure: 2 view chest Comparison: Comparison to multiple prior studies sequentially, with oldest reviewed study dated 01/18. Findings: Moderate right pleural effusion with underlying compressive atelectasis. Status post right lower lobectomy. Heart size normal. No acute focal pneumonia. No edema. No pneumothorax. Impression: 1: Status post right lower lobectomy with right pleural effusion. Reviewed, dictated and finalized at location L. Impression: 1: Status post right lower lobectomy with right pleural effusion.
== END 2022-10-29 13:30 | disposition home or self-care (01) ==
LOC: ANHIMG 13:35
PROVIDERS: PCP Internal Medicine
DX: C34.31 Malignant neoplasm of lower lobe, right bronchus or lung (principal); J90 Pleural effusion, not elsewhere classified
CPT/HCPCS: 71046

== ENCOUNTER 2023-01-03 07:22 | Outpatient (CLI) | payer OTHER, SELFPAY ==
[2023-01-03 08:32] LABS: Hemoglobin 10.9 g/dL (14.0-18.0); Mean Corpuscular HGB Conc 32.1 g/dl (32-36); Mean Corpuscular Hemoglobin 30.6 pg (26-34); Mean Corpuscular Volume 95.5 fl (80-100); Mean Platelet Volume 9.9 fl (7.4-10.4); Platelet Count Result 137 k/mm3 (150-375); Red Blood Count 3.56 M/mm3 (4.6-6.20); Red Cell Distribution Width 14.7 % (11.5-14.5); White Blood Count 4.3 K/mm3 (4.5-10.0)
[2023-01-03 08:49] LABS: Basophils Percent Auto 0.5 % (0.2-1.2); Immature Granulocyte Absolute 0.04 K/mm3 (0.00-0.031); Immature Granulocyte Percent A 0.9 % (0-0.5); Lymphocytes Percent Auto 16.5 % (18.3-44.2); Monocytes Absolute Auto 0.3 K/mm3 (0.1-0.6); Monocytes Percent Auto 6.1 % (2.6-8.5); Neutrophils Absolute Auto 3.2 K/mm3 (1.3-6.7)
[2023-01-03 08:50] LABS: Alanine Aminotransferase 43 U/L (6-50); Albumin Level 4.2 g/dL (3.5-5.1); Alkaline Phosphatase 75 U/L (38-126); Anion Gap 8 mmol/L (8-16); Aspartate Amino Transferase 40 U/L (17-59); Bilirubin,Total 0.4 mg/dL (0.2-1.3); Blood Urea Nitrogen 23 mg/dL (9-20); Calcium 9.3 mg/dL (8.4-10.2); Carbon Dioxide 27 mmol/L (22-30); Chloride 101 mmol/L (98-107); Estimated Glomerular Filt Rate > 60; Glucose 191 mg/dL (65-110); Magnesium 1.6 mg/dL (1.6-2.3); Potassium 4.1 mmol/L (3.4-5.0); Sodium 136 mmol/L (137-145)
== END 2023-01-03 07:23 | disposition home or self-care (01) ==
PROVIDERS: PCP Internal Medicine; Visit Provider Internal Medicine Hematology & Oncology
DX: C34.31 Malignant neoplasm of lower lobe, right bronchus or lung (principal)
CPT/HCPCS: 36415; 80053; 83735; 85025; 85027; 99212; G0463

== ENCOUNTER 2023-02-28 06:57 | Outpatient (CLI) | payer OTHER, SELFPAY ==
--- NOTE | ~2023-02-28 | CT_ITS ---
Clinical Indication: Lung cancer CT Scan of the Chest with Contrast: Technique: Contiguous sections were acquired throughout the chest after intravenous administration of 75 cc of Omnipaque 350. Dose reduction technique was used on this scan by utilizing automated exposu re control and iterative reconstruction technique. The dose-length product (DLP) was 682.73 mGy-cm. COMPARISON: 06/27/2022 Findings: There is no evidence of any significant mediastinal, hilar or axillary lymphadenopathy. There is no f illing defect in the pulmonary arterial tree to suggest pulmonary embolus. There is no evidence of ao rtic dissection or aneurysm. There is no evidence of pleural or pericardial effusion. There is evidence of prior right lower lobectomy. There is mild scarring at the right lung base. Ther e is small probably loculated right basilar pleural effusion. Calcified granuloma in the left upper l obe noted.. Images through the upper abdomen reveal nodular contour of the liver. Impression: Status post interval right lower lobectomy. No evidence for active malignancy or metastatic disease i n the current exam. Cirrhotic change of the liver. Reviewed, dictated and finalized at location M. Impression: Status post interval right lower lobectomy. No evidence for active malignancy o r metastatic disease in the current exam. Cirrhotic change of the liver.
== END 2023-02-28 06:58 | disposition home or self-care (01) ==
PROVIDERS: PCP Internal Medicine; Visit Provider Internal Medicine Hematology & Oncology
DX: C34.31 Malignant neoplasm of lower lobe, right bronchus or lung (principal)
CPT/HCPCS: 71260; Q9967

== ENCOUNTER 2023-06-05 07:47 | Outpatient (CLI) | payer OTHER, SELFPAY ==
--- NOTE | ~2023-06-05 | CT_ITS ---
EXAMINATION:CT diagnostic chest w con DATE: 06/05/2023 08:18 INDICATION: Malignant neoplasm of lower lobe of right lung. TECHNIQUE: Computed tomography (CT) of the chest was performed with 75 mL Omnipaque 350 intravenous c ontrast. Automated exposure control and iterative reconstruction technique were employed. The dose-le ngth product (DLP) was 655.87 mGy-cm. COMPARISON: Chest CT 02/28/2023 FINDINGS: There is mild scarring at right lung apex. There are changes of right lower lobectomy. Ther e is mild atelectasis bilaterally. A calcified left lung nodule and calcified mediastinal lymph nodes are consistent with old granulomatous disease. No pleural effusion. Cardiomegaly is noted. There are coronary artery calcifications. No pericardial effusion. There is a 13 mm subcutaneous mass in right anterior superior chest, likely a sebaceous cyst. There is a small sliding hiatal hernia. The liver demonstrates surface nodularity, consistent with cirrhosis. There are changes of cholecystectomy. The re is a 6.3 cm cyst in left kidney. There is mild thoracic spondylosis. IMPRESSION: 1. No evidence of metastatic disease. 2. Cirrhosis of the liver. Reviewed, dictated and finalized at location A. SPECIALIST
[2023-06-05 08:13] LABS: Estimated Glomerular Filt Rate > 60
== END 2023-06-05 07:48 | disposition home or self-care (01) ==
PROVIDERS: PCP Internal Medicine; Visit Provider Internal Medicine Hematology & Oncology
DX: C34.31 Malignant neoplasm of lower lobe, right bronchus or lung (principal); K74.60 Unspecified cirrhosis of liver
CPT/HCPCS: 71260; Q9967

== ENCOUNTER 2023-06-20 08:28 | Outpatient (CLI) | payer OTHER, SELFPAY ==
[2023-06-20 09:05] LABS: Basophils Percent Auto 0.5 % (0.2-1.2); Eosinophils Absolute Auto 0.2 K/mm3 (0-0.3); Hematocrit 38.2 % (42.0-52.0); Hemoglobin 12.4 g/dL (14.0-18.0); Immature Granulocyte Absolute 0.01 K/mm3 (0.00-0.031); Immature Granulocyte Percent A 0.3 % (0-0.5); Lymphocytes Absolute Auto 1.29 K/mm3 (0.9-3.2); Lymphocytes Percent Auto 34.1 % (18.3-44.2); Mean Corpuscular HGB Conc 32.5 g/dl (32-36); Mean Corpuscular Hemoglobin 31.2 pg (26-34); Mean Platelet Volume 9.6 fl (7.4-10.4); Monocytes Absolute Auto 0.4 K/mm3 (0.1-0.6); Monocytes Percent Auto 10.6 % (2.6-8.5); Neutrophils Absolute Auto 1.9 K/mm3 (1.3-6.7); Neutrophils Percent Auto 49.5 % (45.5-73.1); Platelet Count Result 111 k/mm3 (150-375); Red Blood Count 3.98 M/mm3 (4.6-6.20); Red Cell Distribution Width 12.7 % (11.5-14.5); White Blood Count 3.8 K/mm3 (4.5-10.0)
[2023-06-20 09:14] LABS: Blood Urea Nitrogen 19 mg/dL (8-26); Carbon Dioxide 27 mmol/L (22-30); Chloride 100 mmol/L (98-109); Estimated Glomerular Filt Rate > 60; Glucose 146 mg/dL (70-105); Ionized Calcium (POC) 1.21 mmol/L (1.11-1.31); Potassium 3.4 mmol/L (3.5-4.9); Sodium 141 mmol/L (138-146)
[2023-06-20 13:32] LABS: Cholesterol 167 mg/dL (0-200); HDL Direct 36 mg/dL; Triglycerides 159 mg/dL (<150)
[2023-06-20 13:39] LABS: Alanine Aminotransferase 44 U/L (6-50); Albumin Level 3.9 g/dL (3.5-5.1); Alkaline Phosphatase 83 U/L (38-126); Anion Gap 9 mmol/L (8-16); Aspartate Amino Transferase 45 U/L (17-59); Bilirubin,Total 0.7 mg/dL (0.2-1.3); Blood Urea Nitrogen 20 mg/dL (9-20); Calcium 9.3 mg/dL (8.4-10.2); Carbon Dioxide 29 mmol/L (22-30); Chloride 102 mmol/L (98-107); Estimated Glomerular Filt Rate > 60; Glucose 143 mg/dL (65-110); Potassium 3.6 mmol/L (3.4-5.0); Sodium 140 mmol/L (137-145)
[2023-06-20 13:42] LABS: LDL Cholesterol Direct 97 mg/dL
[2023-06-20 13:47] LABS: Hemoglobin A1C 7.5 % (<5.7)
[2023-06-20 14:02] LABS: Prostate Specific Antigen 0.8 ng/mL (< OR = 4.0)
[2023-06-20 15:19] LABS: Appearance Urine Clear (Clear); Bilirubin Urine Negative (Negative); Blood Urine Negative (Negative); Color Urine Yellow (Yellow); Glucose Urine UA Trace mg/dL (Negative); Ketones Urine Negative (Negative); Leukocyte Esterase Ur Negative LEU/UL (NEGATIVE); Nitrate Urine Negative (Negative); Protein Urine Negative (Negative); Specific Grav Ur 1.022 (1.001-1.035); Urobilinogen Urine 0.2 mg/dL (<2.0); pH Urine 5.5 (5.0-9.0)
[2023-06-20 15:29] LABS: Add Urine Microscopic? NO
== END 2023-06-20 08:29 | disposition home or self-care (01) ==
PROVIDERS: PCP Internal Medicine; Visit Provider Internal Medicine Hematology & Oncology
DX: C34.31 Malignant neoplasm of lower lobe, right bronchus or lung (principal); I10 Essential (primary) hypertension; E11.9 Type 2 diabetes mellitus without complications
CPT/HCPCS: 36415; 80047; 80053; 80061; 81003; 83036; 84153; 84443; 85025; G0103

== ENCOUNTER 2023-09-22 08:58 | Outpatient (CLI) | payer OTHER, SELFPAY ==
--- NOTE | ~2023-09-22 | CT_ITS ---
Clinical Indication: Lung cancer CT Scan of the Chest with Contrast: Technique: Contiguous sections were acquired throughout the chest after intravenous administration of 75 cc of Omnipaque 350. Dose reduction technique was used on this scan by utilizing automated exposu re control and iterative reconstruction technique. The dose-length product (DLP) was 699.19 mGy-cm. COMPARISON: 05/28/2023 Findings: There is no evidence of any significant mediastinal, hilar or axillary lymphadenopathy. There is no f illing defect in the pulmonary arterial tree to suggest pulmonary embolus. There is no evidence of ao rtic dissection or aneurysm. There is no evidence of pleural or pericardial effusion. The lungs are clear, aside from calcified left upper lobe granuloma. Status post right lower lobectom y. Images through the upper abdomen reveal nodular contour of the liver with probable hepatic steatosis. Impression: No evidence of active malignancy or metastatic disease. Status post right lower lobectomy. Cirrhotic change of the liver. Reviewed, dictated and finalized at location . Impression: No evidence of active malignancy or metastatic disease. Status post right lower lobectomy. Cirrhotic change of the liver.
[2023-09-22 09:57] LABS: Estimated Glomerular Filt Rate > 60
== END 2023-09-22 08:59 | disposition home or self-care (01) ==
PROVIDERS: PCP Internal Medicine; Visit Provider Internal Medicine Hematology & Oncology
DX: C34.31 Malignant neoplasm of lower lobe, right bronchus or lung (principal); K74.60 Unspecified cirrhosis of liver; Z90.2 Acquired absence of lung [part of]
CPT/HCPCS: 71260; Q9967

== ENCOUNTER 2023-12-22 08:40 | Outpatient (CLI) | payer OTHER, SELFPAY ==
--- NOTE | ~2023-12-22 | CT_ITS ---
Clinical Indication: Lung cancer CT Scan of the Chest with Contrast: Technique: Contiguous sections were acquired throughout the chest after intravenous administration of 75 cc of Omnipaque 350. Dose reduction technique was used on this scan by utilizing automated exposu re control and iterative reconstruction technique. The dose-length product (DLP) was 722.19 mGy-cm. COMPARISON: 09/22/2023 Findings: There is no evidence of any significant mediastinal, hilar or axillary lymphadenopathy. There is no f illing defect in the pulmonary arterial tree to suggest pulmonary embolus. There is no evidence of ao rtic dissection or aneurysm. There is no evidence of pleural or pericardial effusion. Status post right lower lobectomy. Calcified left upper lobe granuloma present. Images through the upper abdomen reveal diffuse nodular contour of the liver, compatible cirrhosis. C holecystectomy clips are present. Impression: Status post right lower lobectomy. No evidence of recurrent malignancy or metastatic disease. Cirrhotic liver. Reviewed, dictated and finalized at [facility]. Impression: Status post right lower lobectomy. No evidence of recurrent malignancy or metas tatic disease. Cirrhotic liver.
[2023-12-22 09:07] LABS: Estimated Glomerular Filt Rate > 60
== END 2023-12-22 08:41 | disposition home or self-care (01) ==
PROVIDERS: PCP Internal Medicine; Visit Provider Nurse Practitioner Family
DX: C34.31 Malignant neoplasm of lower lobe, right bronchus or lung (principal); K74.60 Unspecified cirrhosis of liver; Z90.2 Acquired absence of lung [part of]
CPT/HCPCS: 71260; Q9967

== ENCOUNTER 2023-12-29 13:29 | Outpatient (CLI) | payer OTHER, SELFPAY ==
[2023-12-29 13:42] LABS: Basophils Percent Auto 0.9 % (0.2-1.2); Eosinophils Absolute Auto 0.1 K/mm3 (0-0.3); Eosinophils Percent Auto 3.2 % (0-4.4); Hematocrit 38.4 % (42.0-52.0); Hemoglobin 12.4 g/dL (14.0-18.0); Immature Granulocyte Absolute 0.01 K/mm3 (0.00-0.031); Immature Granulocyte Percent A 0.3 % (0-0.5); Lymphocytes Absolute Auto 1.06 K/mm3 (0.9-3.2); Lymphocytes Percent Auto 30.4 % (18.3-44.2); Mean Corpuscular HGB Conc 32.3 g/dl (32-36); Mean Corpuscular Hemoglobin 31.5 pg (26-34); Mean Corpuscular Volume 97.5 fl (80-100); Mean Platelet Volume 10.2 fl (7.4-10.4); Monocytes Absolute Auto 0.3 K/mm3 (0.1-0.6); Monocytes Percent Auto 9.2 % (2.6-8.5); Platelet Count Result 101 k/mm3 (150-375); Red Blood Count 3.94 M/mm3 (4.6-6.20); Red Cell Distribution Width 12.7 % (11.5-14.5); White Blood Count 3.5 K/mm3 (4.5-10.0)
[2023-12-29 13:45] LABS: Blood Urea Nitrogen 17 mg/dL (8-26); Carbon Dioxide 29 mmol/L (22-30); Chloride 99 mmol/L (98-109); Estimated Glomerular Filt Rate 56; Glucose 167 mg/dL (70-105); Potassium 3.3 mmol/L (3.5-4.9); Sodium 140 mmol/L (138-146)
[2023-12-29 16:58] LABS: Alanine Aminotransferase 62 U/L (6-50); Albumin Level 4.1 g/dL (3.5-5.1); Alkaline Phosphatase 86 U/L (38-126); Anion Gap 9 mmol/L (4-12); Aspartate Amino Transferase 52 U/L (17-59); Bilirubin,Total 0.4 mg/dL (0.2-1.3); Blood Urea Nitrogen 18 mg/dL (9-20); Carbon Dioxide 31 mmol/L (22-30); Chloride 98 mmol/L (98-107); Estimated Glomerular Filt Rate > 60; Glucose 165 mg/dL (65-110); Potassium 3.4 mmol/L (3.4-5.0); Sodium 138 mmol/L (137-145)
== END 2023-12-29 13:30 | disposition home or self-care (01) ==
LOC: ANHLAB 13:31
PROVIDERS: PCP Internal Medicine; Visit Provider Internal Medicine Hematology & Oncology
DX: C34.31 Malignant neoplasm of lower lobe, right bronchus or lung (principal)
CPT/HCPCS: 36415; 80047; 80053; 85025

== ENCOUNTER 2024-04-12 06:53 | Outpatient (CLI) | payer OTHER, SELFPAY ==
--- NOTE | ~2024-04-12 | CT_ITS ---
Clinical Indication: Lung cancer CT Scan of the Chest with Contrast: Technique: Contiguous sections were acquired throughout the chest after intravenous administration of 75 cc of Omnipaque 350. Dose reduction technique was used on this scan by utilizing automated exposu re control and iterative reconstruction technique. The dose-length product (DLP) was 698.88 mGy-cm. COMPARISON: 12/22/2023 Findings: There is no evidence of any significant mediastinal, hilar or axillary lymphadenopathy. There is no f illing defect in the pulmonary arterial tree to suggest pulmonary embolus. There is no evidence of ao rtic dissection or aneurysm. There is no evidence of pleural or pericardial effusion. Status post right lower lobectomy. There is mild postoperative distortion of the right lung base. No suspicious pulmonary nodule or consolidation seen. Calcified granuloma noted in the left upper lobe/l ingula. Images through the upper abdomen reveal diffuse nodular contour of the liver, with cholecystectomy cl ips. Impression: No evidence of active malignancy or metastatic disease. Status post right lower lobectomy. Cirrhosis of liver. Reviewed, dictated and finalized at location . S WORKER Impression: No evidence of active malignancy or metastatic disease. Status post right lower lobectomy. Cirrhosis of liver.
[2024-04-12 07:19] LABS: Estimated Glomerular Filt Rate 56
== END 2024-04-12 06:54 | disposition home or self-care (01) ==
PROVIDERS: PCP Internal Medicine; Visit Provider Internal Medicine Hematology & Oncology
DX: C34.31 Malignant neoplasm of lower lobe, right bronchus or lung (principal); Z90.2 Acquired absence of lung [part of]; K74.60 Unspecified cirrhosis of liver
CPT/HCPCS: 71260; Q9967

== ENCOUNTER 2024-04-22 13:52 | Outpatient (CLI) | payer OTHER, SELFPAY ==
[2024-04-22 14:53] LABS: Basophils Percent Auto 0.7 % (0.2-1.2); Eosinophils Absolute Auto 0.2 K/mm3 (0-0.3); Eosinophils Percent Auto 3.4 % (0-4.4); Hematocrit 38.7 % (42.0-52.0); Hemoglobin 12.8 g/dL (14.0-18.0); Immature Platelet Fraction Pct 3.2 % (0.9-11.2); Lymphocytes Absolute Auto 1.62 K/mm3 (0.9-3.2); Lymphocytes Percent Auto 36.6 % (18.3-44.2); Mean Corpuscular HGB Conc 33.1 g/dl (32-36); Mean Corpuscular Hemoglobin 31.8 pg (26-34); Mean Corpuscular Volume 96.3 fl (80-100); Mean Platelet Volume 9.9 fl (7.4-10.4); Monocytes Absolute Auto 0.5 K/mm3 (0.1-0.6); Monocytes Percent Auto 11.5 % (2.6-8.5); Neutrophils Absolute Auto 2.1 K/mm3 (1.3-6.7); Neutrophils Percent Auto 47.8 % (45.5-73.1); Platelet Count Result 112 k/mm3 (150-375); Red Blood Count 4.02 M/mm3 (4.6-6.20); Red Cell Distribution Width 12.9 % (11.5-14.5); White Blood Count 4.4 K/mm3 (4.5-10.0)
[2024-04-22 17:28] LABS: Cholesterol 138 mg/dL (0-200); HDL Direct 34 mg/dL; Triglycerides 190 mg/dL (<150)
[2024-04-22 17:39] LABS: LDL Cholesterol Direct 65 mg/dL
[2024-04-22 17:59] LABS: Alanine Aminotransferase 41 U/L (6-50); Albumin Level 4.3 g/dL (3.5-5.1); Alkaline Phosphatase 68 U/L (38-126); Anion Gap 9 mmol/L (4-12); Aspartate Amino Transferase 44 U/L (17-59); Bilirubin,Total 0.6 mg/dL (0.2-1.3); Blood Urea Nitrogen 33 mg/dL (9-20); Calcium 9.5 mg/dL (8.4-10.2); Carbon Dioxide 31 mmol/L (22-30); Chloride 98 mmol/L (98-107); Estimated Glomerular Filt Rate 56; Glucose 109 mg/dL (65-110); Potassium 3.4 mmol/L (3.4-5.0); Sodium 138 mmol/L (137-145)
[2024-04-22 18:20] LABS: Iron 111 ug/dL (49-181)
[2024-04-22 18:30] LABS: Percent Iron Saturation 34 % (20-50)
[2024-04-22 19:06] LABS: Folic Acid 5.1 ng/mL (2.76->20)
[2024-04-22 19:20] LABS: Hemoglobin A1C 6.6 % (<5.7)
[2024-04-22 19:50] LABS: Microalbumin Urine Random 31.7 mg/L (0-16.7)
[2024-04-22 19:51] LABS: Creatinine Urine 241.1 mg/dL; MALB Creatinine Ratio 13.1 mg/g (0-30)
== END 2024-04-22 13:53 | disposition home or self-care (01) ==
LOC: ANHLAB 13:53
PROVIDERS: PCP Internal Medicine; Visit Provider Internal Medicine Hematology & Oncology
DX: E11.9 Type 2 diabetes mellitus without complications (principal); E78.5 Hyperlipidemia, unspecified
CPT/HCPCS: 36415; 80053; 80061; 82043; 82607; 82728; 82746; 83036; 83540; 83550; 84443; 85025; 85055

== ENCOUNTER 2024-07-23 10:16 | Outpatient (CLI) | payer OTHER, SELFPAY ==
--- NOTE | ~2024-07-23 | XR_ITS ---
XR chest 2V 07/23/2024 10:37 Indication: Annual physical examination Procedure: 2 view chest Comparison: 10/29/2022 and 08/15/2022 Findings: Status post right lower lobectomy. There is evidence of chronic granulomatous disease. No f ocal air space disease, pulmonary edema, pleural effusion or suspected pneumothorax. Impression: 1: No acute cardiopulmonary disease. Reviewed, dictated and finalized at location B. ER COMPOUNDER MIXER Impression: 1: No acute cardiopulmonary disease.
--- OUTSIDE RECORDS SUMMARY | 2024-07-23 10:29 | XMS_ITS | Clinical Summary ---
Author Organization [facility] Address [address] [place] [address] Care Team Providers Care Solderer Torch Name Role Phone Colby Ahumada MD Primary Care Provider [phone] Social History Tobacco Use Types Packs/Day Years Used Date Smoking Tobacco: Never Assessed Sex and Gender Information Value Date Recorded Sex Assigned at Not on file Legal Sex Male 4:47 PM CDT Gender Identity Not on file Sexual Orientation Not on file Last Filed Vital Signs Vital Sign Reading Time Taken Comments Blood Pressure 126/90 08/17/2012 5:38 PM CDT Pulse 67 08/17/2012 5:38 PM CDT Temperature - - Respiratory Rate - - Oxygen Saturation - - Inhaled Oxygen Concentration - - Weight 117 kg (258 lb) 08/17/2012 5:38 PM CDT Height - - Body Mass Index - - Plan of Treatment Health Maintenance Due Date Last Done Comments Colorectal Cancer Screening Colonoscopy (10 Years) 1962 Annual Physical 1965 Hepatitis C 1980 DTaP, Tdap and Td Vaccines ( 1 - Tdap) 1981 Zoster Vaccines (1 of 2) 2012 COVID-19 Vaccine ( - 2023-2 5 season) 2024 Influenza Adult (#1) 2024 RSV Immunization or 60+ Years (1 - 1-dose 75+ series) 2037 Meningococcal B Vaccine Aged Out No l onger eligible based on patient's age to complete this topic Meningococcal Vaccine Aged Out No leona charissa eligible based on patient's age to complete this topic Pneumococcal Vaccine: Pediat rics (0 to 5 Years) and At-Risk Patients (6 to 64 Years) Aged Out No longer eligible b ased on patient's age to complete this topic RSV Immunizations Under 20 Months Aged Out No longer eligible based on patient's age to complete this topic Insurance [employer] Care Teams Solderer Torch Relationship Specialty Start Date End Date Colby Ahumada MD [address] [place] [address] PCP - General INTERNAL MEDICINE 12/28/19
--- OUTSIDE RECORDS SUMMARY | 2024-07-23 10:29 | XMS_ITS | Clinical Summary ---
[facility] Address [address] [place] [address] Care Team Providers Care Guest Service Manager Name Role Phone Colby Ahumada MD Primary Care Provider [phone] Allergies Active Allergy Reactions Criticality Noted Date Comments Adhesive Tape-Silicones Other (See Comments) 10/07/2022 Leaves red del angel Medications metFORMIN 500 mg tablet Take 500 mg by mouth 2 times daily with meals. Active simvastatin 20 mg tablet Take 20 mg by mouth daily with supper. Active felodipine ER 10 mg tablet,extended release 24 hr Take 10 mg by mouth daily. Active lisinopril 20 mg-hydrochlorot hiazide 12.5 mg tablet Take 1 Tablet by mouth daily. Active semaglutide (Rybelsus) 14 mg Tablet Take by mouth. Active multivitamin with iron tablet Take 1 Tablet by mouth daily. Active VITAMIN E ORAL Take 180 mg by mouth. Active docusate sodium (COLACE) 100 mg capsule Take 1 Capsule (100 mg) by mouth 2 times daily as needed for Constipation. 10 Capsule 10/10/2022 Active acetaminophen (TYLENOL) 500 mg tablet Take 1 Tablet (500 mg) by mouth every 8 hours as needed for Pain, Mild / Temperature. 50 Tablet 10/10/2022 Active ondansetron (ZOFRAN ODT) 8 mg Tablet, Rapid DissolveIndicat ions:Malignant neoplasm of lower lobe of right lung (CMS/HCC) Dissolve 1 tablet on top of tongue then swallow with saliva every 8 hours as needed for nausea or vomiting 30 Tablet 3 10/31/2022 Active Active Problems Problem Noted Date Diagnosed Date Hypertension 09/29/2022 Hyperlipidemia 09/29/2022 DM2 (diabetes mellitus, type 2) 09/29/2022 Malignant neoplasm of lower lobe of right lung 0 09/18/2022 Encounters Date Type Department Care Team Description 07/01/2024 External Device Data [facility] ABSTRACTION Provider, Abstract 06/30/2024 External Device Data [facility] ABSTRACTION Provider, Abstract 06/29/2024 External Device Data [facility] ABSTRACTION Provider, Abstract 06/23/2024 External Device Data [facility] ABSTRACTION Provider, Abstract 06/15/2024 External Device Data [facility] ABSTRACTION Provider, Abstract 04/28/2024 4:30 PM TURNING SANDER OPERATOR Telephone Check Up [facility] Oncology and Hematology - [address] [place] [address] Gavin Swenson MD Malignant neoplasm of lower lobe of right lung (CMS/HCC) (Primary Dx); Chronic anemia 04/23/[address] [facility] Oncology and Hematology [facility] [address] [place] [address] Gavin Swenson MD from Last 3 Months Family History Medical History Relation Name Comments No Known Problems Daughter 1 No Known Problems Daughter 2 No Known Problems Daughter 3 No Known Problems Daughter 4 Prostate Cancer Father Diabetes Mother Squamous cell carcinoma Mother No Known Problems Sister Relation Name Status Comments Daughter 1 Alive Daughter 2 Alive Daughter 3 Alive Daughter 4 Alive Father Mother Sister Alive Social History Tobacco Use Types Packs/Day Years Used Date Smoking Tobacco: Former Cigarettes 1 45 0 10/1976 - 10/2021 Smokeless Tobacco: Never Tobacco Cessation:Counseling Given: Not Answered Alcohol Use Standard Drinks/Week Comments Not Currently 0 (1 standard drink = 0.6 oz pur e alcohol) Feeling Safe Answer Date Recorded Are you in a relationship wi th someone who hurts you emotionally and/or physically? Unable to obtain 10/07/2022 Food Insecurity Answer Date Recorded Social/Environmental Concerns No concerns Transportation Needs Answer Date Record ed Social/Environmental Concerns No concerns Housing Stability Answer Date Recorded Social/Environmental Concerns No concerns Utility Needs Answer Date Recorded Social/Environmental Concerns No concerns Sex and Gender Information Value Date Recorded Sex Assigned at Not on file Legal Sex Male 3:52 PM CDT Gender Identity Not on file Sexual Orientation Not on file Last Filed Vital Signs Vital Sign Reading Time Taken Comments Blood Pressure 122/71 12/29/2023 2:18 PM CDT Pulse 62 12/29/2023 2:18 PM CDT Temperature 36.6 C (97.8 F) 12/29/2023 2:18 PM CDT Respiratory Rate 18 12/29/2023 2:18 PM CDT Oxygen Saturation 93% 12/29/2023 2:18 PM CDT Inhaled Oxygen Concentration - - Weight 123.8 kg (273 lb) 12/29/2023 2:18 PM CDT Height 167.6 cm (5' 6 ) 11/06/2022 11:04 AM CDT Body Mass Index 44.06 11/06/2022 11:04 AM CDT Plan of Treatment Upcoming Encounters Date Type Department Care Team (Late st Contact Info) Description 09/01/2024 11:45 AM CDT Office Visit [facility] Oncology and Hematology [facility] [address] [facility] [address] [place] [address] Gavin Swenson MD [address] [facility] [address] [place] [address] Health Maintenance Due Date Last Done Comments PNEUMOCOCCAL VACCINE 0-64 YEARS (1 of 2 - PCV) 969 DIABETES ANNUAL FOOT EXAM 1980 DIABETES ANNUAL RETINAL EXAM 1980 DIABETES MICROALBUMIN ANNUAL SCREEN 1980 LDL CHOLESTEROL ANNUAL 1980 DTAP/TDAP/TD VACCINES (1 - Tdap) 1981 COLORECTAL SCREENING 09/04/2007 Colorectal Cancer Screening 09/04/2007 FIT-DNA Q 3 years 09/04/2007 FIT/FOBT Q 1 year 09/04/2007 Flex Sig/CT Colonography Q 5 years 09/04/2007 ZOSTER VACCINE (1 of 2) 2012 RSV VACCINE (60+ or ) (1 - Risk 60-74 years 1-dose series) 2022 DIABETES HBA1C Q 6 MONTHS 03/20/2023 09/18/2022 INFLUENZA VACCINE (#1) 2024 02/28/2022 Medical Devices Implanted Type Area Health Policy Manager Device Identifier Shelf Expiration Date Model / Serial / Lot Sealant Progel Pleural 4ml [id number] - [id number] Implanted:Qty: 1 on 10/07/2022 by Mariusz Tsang MD at [facility] Tissue Right: Chest BARD BONIFACIOOL [id number] 02/04/2024 [id number] / / [id number] Procedures Procedure Name Priority Date/Time Associated Diagnosis Comments COMPREHENSIVE METABOLIC PANEL Routine 04/22/2024 2:29 PM TURNING SANDER OPERATOR CHG HDL CHOLESTEROL Routine 04/22/2024 2 :13 PM TURNING SANDER OPERATOR CBC WITH DIFFERENTIAL Routine 04/22/2024 12:51 PM TURNING SANDER OPERATOR HEMOGLOBIN A1C Routine 09/18/2022 2:18 PM CDT from Last 3 Months or Most Recently Relevant to Health Maintenance Results * COMPREHENSIVE METABOLIC PANEL (04/22/2024 2:29 PM TURNING SANDER OPERATOR) Blood Gavin Swenson MD CHEMISTRY ORDERABLES Final Resu lt * CHG HDL CHOLESTEROL (04/22/2024 2:13 PM TURNING SANDER OPERATOR) us Provider Scanning CHG - LABORATORY Final Result * CBC WITH DIFFERENTIAL (04/22/2024 12:51 PM TURNING SANDER OPERATOR) Blood Gavin Swenson MD HEMATOLOGY ORDERABLES Final Res ult * (ABNORMAL) HEMOGLOBIN A1C (09/18/2022 2:18 PM CDT) HEMOGLOBIN A1C 8.0(H) <5.7 % 09/18/2022 4:26 PM CDT [facility] EST. AVG GLUCOSE, A1C 183 mg/dL 09/18/2022 4:26 PM CDT [facility] Blood Venipuncture / Unknown 09/18/2022 2:18 PM CDT 09/18/2022 3:49 PM CDT Narrative [facility] LABORATORY SERVICES - [facility] - 09/18/2022 4:26 PM CDT HGB A1C INTERPRETATION NORMAL: <5.7% PRE-DIABETES: 5.7 - 6.4% DIABETES: 6.5% OR GREATER Thao Jung Aurora PHYSICAL THERAPY ASSISTANT CHEMISTRY ORDERABLES Final Resu lt [facility] - [facility] CLIA# [id number] [address] [place] [address] from Last 3 Months or Most Recently Relevant to Health Maintenance Insurance [place] [id number] [place] [id number] RX [employer] RX Member Subscriber Plan / Payer (Ef fective 2022-Present) Name:Kevin Do Relation to Subscriber:Not on file Name:Kevin Do Subscriber ID:Not on file Date of :1960 Payer ID:Not on file Group ID:[id number] Type:RX Commercial Address: [address] Advance Directives For more information, please contact: [phone] * Full Code (Latest Code Status on File) Date Activated Date Inactivated Comments 10/07/2022 7:59 PM 10/10/2022 4:43 PM * Full Code Date Activated Date Inactivated Comments 10/07/2022 7:59 PM 10/07/2022 7:59 PM * Full Code Date Activated Date Inactivated Comments 10/07/2022 9:49 AM 10/07/2022 7:59 PM Care Teams Guest Service Manager Relationship Specialty Start Date End Date Colby Ahumada MD [address] [place] [address] PCP - General Internal Medicine 09/09/22
[2024-07-23 10:58] LABS: Hematocrit 45.3 % (40.0-54.0); Hemoglobin 14.6 g/dL (14.0-18.0); Immature Platelet Fraction Pct 1.8 % (1.0-7.0); Mean Corpuscular HGB Conc 32.2 g/dL (32-36); Mean Corpuscular Hemoglobin 30.7 pg (27.0-31.0); Mean Corpuscular Volume 95.4 fL (78.0-102.0); Mean Platelet Volume 9.6 fl (8.7-11.0); Platelet Count Result 131 K/mm3 (150-420); Red Blood Count 4.75 M/mm3 (4.70-6.10); Red Cell Distribution Width 12.1 % (11.6-14.4); White Blood Count 5.3 K/mm3 (4.8-10.8)
[2024-07-23 11:12] LABS: Add Urine Microscopic? YES; Appearance Urine Clear (Clear); Bilirubin Urine Negative (Negative); Blood Urine Negative (Negative); Color Urine Yellow (Yellow); Glucose Urine UA Negative (Negative); Ketones Urine Negative (Negative); Leukocyte Esterase Ur Negative (Negative); Nitrate Urine Negative (Negative); Protein Urine 1+ (Negative); Specific Grav Ur >= 1.030 (1.010-1.020); Urobilinogen Urine 0.2 mg/dL (0.2-1.0)
[2024-07-23 11:38] LABS: SARS-CoV-2 RNA PCR Negative (Negative)
[2024-07-23 11:40] LABS: Bacteria Urine Trace /hpf; Mucus Urine Moderate /lpf; RBC Urine None seen /hpf (0-2); Squamous Epithelial Cell Urine Rare /hpf (Few); WBC Urine None seen /hpf (0-3)
[2024-07-23 11:50] LABS: Influenza A QL RT-PCR Negative (Negative); Influenza B QL RT-PCR Negative (Negative); RSV RNA, RT-PCR Negative (Negative)
[2024-07-23 11:53] LABS: Hemoglobin A1C 6.2 % (<5.7)
[2024-07-23 11:59] LABS: Erythrocyte Sedimentation Rate 10 mm/hr (0-20)
[2024-07-23 12:06] LABS: Alanine Aminotransferase 55 U/L (16-63); Albumin Level 4.5 g/dL (3.4-5.0); Alkaline Phosphatase 101 U/L (46-116); Amylase 32 U/L (25-115); Anion Gap 6 mmol/L (4-12); Aspartate Amino Transferase 41 U/L (15-37); Bilirubin,Total 0.8 mg/dL (0.00-1.00); Blood Urea Nitrogen 25 mg/dL (7-18); Calcium 9.7 mg/dL (8.5-10.1); Carbon Dioxide 34 mmol/L (21-32); Chloride 100 mmol/L (98-108); Estimated Glomerular Filt Rate 49; Glucose 122 mg/dL (70-99); Lipase 29 U/L (16-77); Osmolality Calculated 295 mOsm/kg (285-295); Potassium 3.5 mmol/L (3.5-5.1); Prostate Specific Antigen 1.3 ng/mL (< OR = 4.0); Sodium 140 mmol/L (136-145); Total Protein 8.1 g/dL (6.4-8.2)
[2024-07-23 12:12] LABS: CRP < 0.5 mg/dL (0.0-0.9)
== END 2024-07-23 10:17 | disposition home or self-care (01) ==
LOC: CHSLAB 10:19
PROVIDERS: PCP Internal Medicine; Visit Provider Internal Medicine
DX: Z00.00 Encounter for general adult medical examination without abnormal findings (principal); E11.9 Type 2 diabetes mellitus without complications; K74.60 Unspecified cirrhosis of liver; R10.9 Unspecified abdominal pain; J06.9 Acute upper respiratory infection, unspecified
CPT/HCPCS: 36415; 71046; 80053; 81001; 82150; 83036; 83690; 84153; 85027; 85055; 85652; 86140; 87637; G0103

== ENCOUNTER 2024-08-06 14:43 | Outpatient (CLI) | payer OTHER, SELFPAY ==
[2024-08-06 15:04] LABS: Add Urine Microscopic? YES; Appearance Urine Clear (Clear); Basophils Absolute Auto 0.03 K/mm3 (0.00-0.10); Basophils Percent Auto 0.8 % (0.0-1.0); Bilirubin Urine 1+ (Negative); Blood Urine Negative (Negative); Color Urine Yellow (Yellow); Eosinophils Absolute Auto 0.11 K/mm3 (0.02-0.50); Eosinophils Percent Auto 2.8 % (1.0-6.0); Glucose Urine UA Negative (Negative); Hematocrit 38.4 % (40.0-54.0); Hemoglobin 12.2 g/dL (14.0-18.0); Ketones Urine Trace (Negative); Leukocyte Esterase Ur Negative (Negative); Lymphocytes Absolute Auto 1.31 K/mm3 (1.10-4.50); Lymphocytes Percent Auto 32.9 % (18.0-42.0); Mean Corpuscular HGB Conc 31.8 g/dL (32-36); Mean Corpuscular Hemoglobin 31.4 pg (27.0-31.0); Mean Platelet Volume 10.9 fl (8.7-11.0); Monocytes Absolute Auto 0.41 K/mm3 (0.10-0.90); Monocytes Percent Auto 10.3 % (2.0-11.0); Neutrophils Absolute Auto 2.12 K/mm3 (1.70-7.20); Neutrophils Percent Auto 53.2 % (50.0-70.0); Nitrate Urine Negative (Negative); Platelet Count Result 88 K/mm3 (150-420); Protein Urine 1+ (Negative); Red Blood Count 3.88 M/mm3 (4.70-6.10); Red Cell Distribution Width 12.4 % (11.6-14.4); Specific Grav Ur >= 1.030 (1.010-1.020); Urobilinogen Urine 0.2 mg/dL (0.2-1.0)
[2024-08-06 15:24] LABS: Bacteria Urine Trace /hpf; RBC Urine None seen /hpf (0-2); Squamous Epithelial Cell Urine Few /hpf (Few); WBC Urine None seen /hpf (0-3)
[2024-08-06 15:55] LABS: Alanine Aminotransferase 46 U/L (16-63); Albumin Level 3.9 g/dL (3.4-5.0); Alkaline Phosphatase 103 U/L (46-116); Anion Gap 10 mmol/L (4-12); Aspartate Amino Transferase 32 U/L (15-37); Bilirubin,Total 0.5 mg/dL (0.00-1.00); Blood Urea Nitrogen 25 mg/dL (7-18); Calcium 9.1 mg/dL (8.5-10.1); Carbon Dioxide 31 mmol/L (21-32); Chloride 102 mmol/L (98-108); Estimated Glomerular Filt Rate 48; Glucose 120 mg/dL (70-99); Osmolality Calculated 301 mOsm/kg (285-295); Potassium 3.5 mmol/L (3.5-5.1); Sodium 143 mmol/L (136-145); Total Protein 6.9 g/dL (6.4-8.2)
== END 2024-08-06 14:44 | disposition home or self-care (01) ==
LOC: CHSLAB 14:47
PROVIDERS: PCP Internal Medicine; Visit Provider Internal Medicine
DX: E86.0 Dehydration (principal); R74.01 Elevation of levels of liver transaminase levels
CPT/HCPCS: 36415; 80053; 81001; 85025; 85055

== ENCOUNTER 2024-08-23 08:56 | Outpatient (CLI) | payer OTHER, SELFPAY ==
--- NOTE | ~2024-08-23 | CT_ITS ---
Clinical Indication: Lung cancer CT Scan of the Chest with Contrast: Technique: Contiguous sections were acquired throughout the chest after intravenous administration of 75 cc of Omnipaque 350. Dose reduction technique was used on this scan by utilizing automated exposu re control and iterative reconstruction technique. The dose-length product (DLP) was 551.37 mGy-cm. COMPARISON: 424 Findings: There is no evidence of any significant mediastinal, hilar or axillary lymphadenopathy. There is no f illing defect in the pulmonary arterial tree to suggest pulmonary embolus. There is no evidence of ao rtic dissection or aneurysm. There is no evidence of pleural or pericardial effusion. Status post right lower lobectomy with mild postoperative scarring/distortion in the right lung. Larg e calcified left upper lobe granuloma present. Left lung otherwise clear. Images through the upper abdomen reveal diffuse nodular contour of liver, compatible cirrhosis. Impression: No evidence of active malignancy or metastatic disease. Status post right lower lobectomy. Cirrhotic liver. Reviewed, dictated and finalized at location . Impression: No evidence of active malignancy or metastatic disease. Status post right lower lobectomy. Cirrhotic liver.
--- OUTSIDE RECORDS SUMMARY | 2024-08-23 09:44 | XMS_ITS | Clinical Summary ---
Author Organization [facility] Address [address] [place] [address] Care Team Providers Care Company Miner Blasting Name Role Phone Colby Ahumada MD Primary Care Provider [phone] Social History Tobacco Use Types Packs/Day Years [...] complete this topic Insurance [employer] Care Teams Company [employer]er [employer] Relationship Specialty Start Date End Date Colby Ahumada MD [address] [place] [address] PCP - General INTERNAL MEDICINE 12/28/19
--- OUTSIDE RECORDS SUMMARY | 2024-08-23 09:44 | XMS_ITS | Clinical Summary ---
[facility] Address [address] [place] [address] Care Team Providers Care Gourmet Coffee Attendant Name Role Phone Colby Ahumada MD Primary Care Provider [phone] Allergies Active Allergy Reactions Criticality Noted Date [...] Encounters Date Type Department Care Team Description 08/14/2024 External Device Data [facility] ABSTRACTION Provider, Abstract 08/13/2024 External Device Data [facility] ABSTRACTION Provider, Abstract 08/10/2024 External Device Data [facility] ABSTRACTION Provider, Abstract 07/27/2024 External Device Data [facility] ABSTRACTION Provider, Abstract 07/01/2024 External Device Data [facility] ABSTRACTION Provider, Abstract 06/30/2024 External Device Data [facility] ABSTRACTION Provider, Abstract 06/29/2024 External Device Data [facility] ABSTRACTION Provider, Abstract 06/23/2024 External Device Data STL ABSTRACTION Provider, Abstract 06/15/2024 External Device Data STL ABSTRACTION Provider, Abstract from Last 3 Months Family History Medical [...] Description 09/01/2024 11:45 AM CDT Office Visit [facility] Oncology and Hematology - [place] [address] [facility] [address] [place] [address] Gavin Swenson MD [address] [facility] [address] [place] [address] Health Maintenance Due Date Last Done Comments DIABETES ANNUAL FOOT EXAM 1980 DIABETES ANNUAL [...] 03/20/2023 09/18/2022 INFLUENZA VACCINE (#1) 2024 02/28/2022 Preventative Visit- Commercial 06/09/2024 Medical Devices Implanted Type Area Shield Operator Device Identifier Shelf Expiration Date Model / Serial / Lot Sealant Progel Pleural 4ml [id number] - [id number] Implanted:Qty: 1 on 10/07/2022 by Mariusz Tsang MD at [facility] Tissue Right: Chest BARD DAVOL [id number] 02/04/2024 [id number] / / [id number] Procedures Procedure Name Priority Date/Time Associated Diagnosis Comments HEMOGLOBIN A1C Routine 09/18/2022 2:18 PM CDT from Last 3 Months or Most Recently Relevant to Health Maintenance Results * (ABNORMAL) HEMOGLOBIN A1C (09/18/2022 2:18 PM CDT) HEMOGLOBIN A1C 8.0(H) <5.7 % 09/18/2022 4:26 PM CDT [facility] LAB[facility] EST. AVG GLUCOSE, A1C 183 mg/dL 09/18/2022 4:26 PM CDT [facility] Blood Venipuncture / Unknown 09/18/2022 2:18 PM CDT 09/18/2022 3:49 PM CDT Narrative [facility] - 09/18/2022 4:26 PM CDT HGB A1C INTERPRETATION NORMAL: <5.7% PRE-DIABETES: 5.7 - 6.4% DIABETES: 6.5% OR GREATER us Thao Simon GRAPHICS SPECIALIST CHEMISTRY ORDERABLES Final Resu lt [facility] CLIA# [id number] [address] [place] [address] from Last 3 Months or Most Recently Relevant to Health Maintenance Insurance [facility] [id number] [facility] [id number] RX [employer] RX Member Subscriber Plan / Payer (Ef fective 2022-Present) Name:Kevin Do Relation to Subscriber:Not on file Name:Kevin Do Subscriber ID:Not on file Date of :1960 Payer ID:Not on file Group ID:[id number] Type:RX Commercial Address: [address] Advance Directives For more information, please contact: [phone] * Full Code (Latest Code Status on File) Date Activated Date Inactivated Comments 10/07/2022 7:59 PM 10/10/2022 4:43 PM * Full Code Date Activated Date Inactivated Comments 10/07/2022 7:59 PM 10/07/2022 7:59 PM * Full Code Date Activated Date Inactivated Comments 10/07/2022 9:49 AM 10/07/2022 7:59 PM Care Teams Gourmet Coffee Attendant Relationship Specialty Start Date End Date Colby Ahumada MD [address] [place] [address] PCP - General Internal Medicine 09/09/22
== END 2024-08-23 08:57 | disposition home or self-care (01) ==
PROVIDERS: PCP Internal Medicine; Visit Provider Internal Medicine Hematology & Oncology
DX: C34.31 Malignant neoplasm of lower lobe, right bronchus or lung (principal); Z90.2 Acquired absence of lung [part of]; K74.60 Unspecified cirrhosis of liver
CPT/HCPCS: 71260; Q9967

== ENCOUNTER 2024-08-31 12:43 | Outpatient (CLI) | payer OTHER, SELFPAY ==
[2024-08-31 13:04] LABS: Basophils Percent Auto 0.7 % (0.2-1.2); Eosinophils Absolute Auto 0.1 K/mm3 (0-0.3); Eosinophils Percent Auto 3.2 % (0-4.4); Hematocrit 39.1 % (42.0-52.0); Immature Granulocyte Absolute 0.01 K/mm3 (0.00-0.031); Immature Granulocyte Percent A 0.2 % (0-0.5); Lymphocytes Absolute Auto 1.29 K/mm3 (0.9-3.2); Lymphocytes Percent Auto 31.6 % (18.3-44.2); Mean Corpuscular HGB Conc 33.2 g/dl (32-36); Mean Corpuscular Hemoglobin 31.9 pg (26-34); Mean Corpuscular Volume 95.8 fl (80-100); Mean Platelet Volume 9.8 fl (7.4-10.4); Monocytes Absolute Auto 0.3 K/mm3 (0.1-0.6); Monocytes Percent Auto 7.8 % (2.6-8.5); Neutrophils Absolute Auto 2.3 K/mm3 (1.3-6.7); Neutrophils Percent Auto 56.5 % (45.5-73.1); Platelet Count Result 94 k/mm3 (150-375); Red Blood Count 4.08 M/mm3 (4.6-6.20); Red Cell Distribution Width 13.1 % (11.5-14.5); White Blood Count 4.1 K/mm3 (4.5-10.0)
[2024-08-31 14:37] LABS: Iron 118 ug/dL (49-181)
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
--- OUTSIDE RECORDS SUMMARY | 2024-08-31 14:38 | XMS_ITS | Clinical Summary ---
Author Organization [facility] Little Address [address] [place] [address] Care Team Providers Care Cigarette Catcher Name Role Phone Colby Ahumada MD Primary Care Provider [phone] Allergies Active Allergy Reactions Criticality Noted Date [...] Encounters Date Type Department Care Team Description 08/25/2024 External Device Data STL ABSTRACTION Provider, Abstract 08/23/2024 Orders Only [facility] Oncology and Hematology - [place] [address] [facility] [address] [place] [phone] Gavin Swenson MD 08/14/2024 External Device Data STL ABSTRACTION Provider, [...] Description 09/01/2024 11:45 AM CDT Office Visit [facility] Oncology and Hematology [facility] [address] [facility] [address] [place] [address] Gavin Swenson MD [address] [facility] [address] [place] [address] Health Maintenance Due Date Last [...] 2024 02/28/2022 Medical Devices Implanted Type Area Stopping Builder Device Identifier Shelf Expiration Date Model / Serial / Lot Sealant Progel Pleural 4ml [id number] - [id number] Implanted:Qty: 1 on 10/07/2022 by Mariusz Tsang MD at [facility] Tissue Right: Chest BARD VALDOVINOSOL [id number] 02/04/2024 [id number] / / [id number] Procedures Procedure Name Priority Date/Time Associated Diagnosis Comments CT CHEST W CONTRAST Routine 08/23/2024 2 :13 PM CDT HEMOGLOBIN A1C Routine 09/18/2022 2:18 PM CDT from Last 3 Months or Most Recently Relevant to Health Maintenance Results * CT CHEST W CONTRAST (08/23/2024 2:13 PM CDT) Anatomical Region Laterality Modality Chest Computed Tomogra phy Gavin Swenson MD CT ORDERABLES Final Result * (ABNORMAL) HEMOGLOBIN A1C (09/18/2022 2:18 PM CDT) HEMOGLOBIN A1C 8.0(H) <5.7 % 09/18/2022 4:26 PM CDT [facility] EST. AVG GLUCOSE, A1C 183 mg/dL 09/18/2022 4:26 PM CDT [facility] Blood Venipuncture / Unknown 09/18/2022 2:18 PM CDT 09/18/2022 3:49 PM CDT Narrative [facility] - 09/18/2022 4:26 PM CDT HGB A1C INTERPRETATION NORMAL: <5.7% PRE-DIABETES: 5.7 - 6.4% DIABETES: 6.5% OR GREATER us Thao Simon [employer] MANA[employer]ED [employer] CHEMISTRY ORDERABLES Final Resu lt [facility] CLIA# [id number] [address] [id number] from Last 3 Months or Most Recently Relevant to Health Maintenance Insurance [facility] [id number] [place] [id number] RX [employer] RX Member Subscriber Plan / Payer (Ef fective 2022-Present) Name:Kevin Do Relation to Subscriber:Not on file Name:Kevin Do Subscriber ID:Not on file Date of :1960 Payer ID:Not on file Group ID:[id number] Type:RX Commercial Address: [address] Advance Directives For more information, please contact: [phone] * Full Code (Latest Code Status on File) Date Activated Date Inactivated Comments 10/07/2022 7:59 PM 10/10/2022 4:43 PM * Full Code Date Activated Date Inactivated Comments 10/07/2022 7:59 PM 10/07/2022 7:59 PM * Full Code Date Activated Date Inactivated Comments 10/07/2022 9:49 AM 10/07/2022 7:59 PM Care Teams Cigarette Catcher Relationship Specialty Start Date End Date Colby Ahumada MD [address] [place] [phone] PCP - General Internal Medicine 09/09/22
--- OUTSIDE RECORDS SUMMARY | 2024-08-31 14:38 | XMS_ITS | Clinical Summary ---
Author Organization [facility] Address [address] [place] [address] Care Team Providers Care Assembler Molded Frames Name Role Phone Colby Ahumada MD Primary Care Provider [phone] Social History Tobacco Use Types Packs/Day Years [...] complete this topic Insurance [employer] Care Teams Assembler Molded Frames Relationship Specialty Start Date End Date Colby Ahumada MD [address] [place] [address] PCP - General INTERNAL MEDICINE 12/28/19
[2024-08-31 14:43] LABS: Alanine Aminotransferase 45 U/L (6-50); Albumin Level 4.3 g/dL (3.5-5.1); Alkaline Phosphatase 96 U/L (38-126); Anion Gap 12 mmol/L (4-12); Aspartate Amino Transferase 56 U/L (17-59); Bilirubin,Total 0.7 mg/dL (0.2-1.3); Blood Urea Nitrogen 24 mg/dL (9-20); Calcium 9.3 mg/dL (8.4-10.2); Carbon Dioxide 29 mmol/L (22-30); Chloride 98 mmol/L (98-107); Estimated Glomerular Filt Rate 58; Glucose 139 mg/dL (65-110); Potassium 3.1 mmol/L (3.4-5.0); Sodium 139 mmol/L (137-145)
[2024-08-31 14:53] LABS: Percent Iron Saturation 35 % (20-50)
[2024-08-31 17:00] LABS: Folic Acid 5.1 ng/mL (2.76->20)
== END 2024-08-31 12:44 | disposition home or self-care (01) ==
PROVIDERS: PCP Internal Medicine; Visit Provider Internal Medicine Hematology & Oncology
DX: D64.9 Anemia, unspecified (principal)
CPT/HCPCS: 36415; 80053; 82607; 82728; 82746; 83540; 83550; 85025

== ENCOUNTER 2024-10-30 11:04 | Emergency (ER) | payer OTHER, SELFPAY ==
[2024-10-30 11:04] VITALS: BP 147/87; PULSE 95; RESP 16; TEMP 36.2; O2SAT 100
--- OUTSIDE RECORDS SUMMARY | 2024-10-30 11:06 | XMS_ITS | Clinical Summary ---
Author Organization [facility] lyndsay Mcdanielsausten Address [address] [place] [address] Care Team Providers Care Manufacturing Tech Name Role Phone Colby Ahumada MD Primary Care Provider [phone] Allergies Active Allergy Reactions Criticality Noted Date [...] (Rybelsus) 14 mg Tablet Take by mouth. Activ e multivitamin with iron tablet Take 1 Tablet by mouth daily. Active VITAMIN E ORAL Take 180 mg by mouth. Active docusate sodium (COLACE) 100 mg capsule Take 1 Capsule (100 mg) by mouth 2 times daily as needed for Constipation. 10 Capsule 10/11/19 23 Active acetaminophen (TYLENOL) 500 mg tablet Take 1 Tablet (500 mg) by mouth every 8 hours as needed for Pain, Mild / Temperature. 50 Tablet 10/11/19 23 Active ondansetron (ZOFRAN ODT) 8 mg Tablet, Rapid DissolveIndicat ions:Malignant neoplasm of lower lobe of right lung (CMS/HCC) Dissolve 1 tablet on top of tongue then swallow with saliva every 8 hours as needed for nausea or vomiting 30 Tablet 3 11/01/19 23 Active triamcinolone acetonide (KENALOG) 0.1 % Cream Apply to affected area see administration instructions. 08/26/19 Active doxycycline monohydrate 100 mg Tablet Take 1 Tablet by mouth 2 times daily. 08/26/19 25 Active Active Problems Problem Noted Date Diagnosed Date Hypertension 09/29/2022 Hyperlipidemia 09/29/2022 DM2 (diabetes mellitus, type 2) 09/29/2022 Malignant neoplasm of lower lobe of right lung 0 09/18/2022 Encounters Date Type Department Care Team Description 10/28/2024 External Device Data STL ABSTRACTION Provider, Abstract 10/27/2024 External Device Data STL ABSTRACTION Provider, Abstract 10/27/2024 External Device Data STL ABSTRACTION Provider, Abstract 10/26/2024 External Device Data STL ABSTRACTION Provider, Abstract 09/21/2024 External Device Data STL ABSTRACTION Provider, Abstract 09/01/2024 11:45 AM CDT Office Visit [facility] Oncology and Hematology [facility] [address] [place] [address] Gavin Swenson MD Malignant neoplasm of lower lobe of right lung (CMS/HCC) (Primary Dx) 09/01/2024 Orders Only [facility] Oncology and Hematology [place] [address] [place] [address] Gavin Swenson MD 08/25/2024 External Device Data STL ABSTRACTION Provider, Abstract 08/23/2024 Orders Only [facility] Oncology and Hematology [address] [place] [address] Gavin Swenson MD 08/14/2024 External Device Data [...] Sign Reading Time Taken Comments Blood Pressure 139/88 09/01/2024 11:38 AM CDT Pulse 69 09/01/2024 11:33 AM CDT Temperature 36.3 C (97.4 F) 09/01/2024 11:33 AM CDT Respiratory Rate 16 09/01/2024 11:33 AM CDT Oxygen Saturation 97% 09/01/2024 11:33 AM CDT Inhaled Oxygen Concentration - - Weight 115 kg (253 lb 9.6 oz) 09/01/2024 11:33 A M CDT Height 167.6 cm (5' 6) 11/06/2022 11:04 AM CDT Body Mass Index 40.93 11/06/2022 11:04 AM CDT Plan of Treatment Upcoming Encounters Date Type Department Care Team (Late st Contact Info) Description 12/31/2024 12:30 PM CDT Office Visit [facility] Oncology and Hematology - [place] [address] [facility] [address] [place] [address] Gavin Swenson MD [address] [facility] [address] [place] [address] Health Maintenance Due Date Last [...] 2024 02/28/2022 Medical Devices Implanted Type Area Spanner Operator Device Identifier Shelf Expiration Date Model / Serial / Lot Sealant Progel Pleural 4ml [id number] - [id number] Implanted:Qty: 1 on 10/07/2022 by Mariusz Tsang MD at [facility] Tissue Right: Chest BARD DAVOL [id number] 02/04/2024 [id number] / / [id number] Procedures Procedure Name Priority Date/Time Associated Diagnosis Comments COMPREHENSIVE METABOLIC PANEL Routine 08/31/2024 2:22 PM CDT CBC WITH DIFFERENTIAL Routine 08/31/2024 2:05 PM CDT COMPREHENSIVE METABOLIC PANEL Routine 08/31/2024 1:42 PM CDT CBC WITH DIFFERENTIAL Routine 08/31/2024 11:[address] CHEST W CONTRAST Routine 08/23/2024 2 :13 PM CDT HEMOGLOBIN A1C Routine 09/18/2022 2:18 PM CDT from Last 3 Months or Most Recently Relevant to Health Maintenance Results * COMPREHENSIVE METABOLIC PANEL (08/31/2024 2:22 PM CDT) Only the most recent of2 resultswithin the time period is included. Blood us Gavin Swenson MD CHEMISTRY ORDERABLES Final Resu lt * CBC WITH DIFFERENTIAL (08/31/2024 2:05 PM CDT) Only the most recent of2 resultswithin the time period is included. Blood us Gavin Swenson MD HEMATOLOGY ORDERABLES Final Res ult * CT CHEST W CONTRAST (08/23/2024 2:13 PM CDT) Anatomical Region Laterality Modality Chest Computed Tomogra phy Gavin Swenson MD CT ORDERABLES Final Result * (ABNORMAL) HEMOGLOBIN A1C (09/18/2022 2:18 PM CDT) HEMOGLOBIN A1C 8.0(H) <5.7 % 09/18/2022 4:[address] [facility] EST. AVG GLUCOSE, A1C 183 mg/dL 09/18/2022 4:[address] [facility] [employer] [facility] Blood Venipuncture / Unknown 09/18/2022 2:18 PM CDT 09/18/2022 3:[address] [facility] [employer] [facility] - 09/18/2022 4:26 PM CDT HGB A1C INTERPRETATION NORMAL: <5.7% PRE-DIABETES: 5.7 - 6.4% DIABETES: 6.5% OR GREATER Thao JAMES CHEMISTRY ORDERABLES Final Resu lt [facility] [employer] [facility] CLIA# [id number] [address] [place] [id number] from Last 3 Months or Most Recently Relevant to Health Maintenance Insurance [facility] [id number] [facility] [id number] RX [employer] RX Member Subscriber Plan / Payer (Ef fective 2022-Present) Name:Kevin Do Relation to Subscriber:Not on file Name:Tanner Kevin Subscriber ID:Not on file Date of :1960 Payer ID:Not on file Group ID:[id number] Type:RX Commercial Address: [address] Advance Directives For more information, please contact: [phone] * Full Code (Latest Code Status on File) Date Activated Date Inactivated Comments 10/07/2022 7:59 PM 10/10/2022 4:43 PM * Full Code Date Activated Date Inactivated Comments 10/07/2022 7:59 PM 10/07/2022 7:59 PM * Full Code Date Activated Date Inactivated Comments 10/07/2022 9:49 AM 10/07/2022 7:59 PM Care Teams Manufacturing Tech Relationship Specialty Start Date End Date Colby Ahumada MD [address] [place] [phone] PCP - General Internal Medicine 09/09/22
--- OUTSIDE RECORDS SUMMARY | 2024-10-30 11:06 | XMS_ITS | Data Portability ---
Author Organization [place] [facility] [employer] [facility], Main Office Address [address] [place] [address] Care Team Providers Care State Attorney Name Role Phone GORGE DIEGO Primary Care Provider GORGE DIEGO Referring Provider Assessment Encounter Date Assessment Date Assessment LastModified [...] DO Not Attach Compendium, Do Not Delete/merge, [id number] 12:07:22 injection/a spiration joint/bursa (PROC) - in office procedure, administere d by provider 2023 024 [email or web address] In-Office Order, Internal Use Only DO Not Attach Compendium DO Not Attach Compendium, Do Not Delete/merge, [id number] 4 12:03:49 injection/a spiration joint/bursa (PROC) - in office procedure, administere d by provider 2023 024 [email or web address] In-Office Order, Internal Use Only DO Not Attach Compendium DO Not Attach Compendium, Do Not Delete/merge, [id number] 4 12:03:19 injection/a spiration joint/bursa (PROC) - in office procedure, administere d by provider 2023 024 [email or web address] In-Office Order, Internal Use Only DO Not Attach Compendium DO Not Attach Compendium, Do Not Delete/merge, 4 09:42:18 injection/a spiration joint/bursa (PROC) - in office procedure, administere d by provider 2023 024 [email or web address] In-Office Order, Internal Use Only DO Not Attach Compendium DO Not Attach Compendium, Do Not Delete/merge, 4 10:11:05 Surgeries None recorded. Imaging None recorded. Medication Orders Kenalog 10 mg/mL suspension for injection [address] [facility] [address] [place] [address], [address], 4 11:05:45 Marcaine 0.5 % (5 mg/mL) injection solution [address] [facility], [address] [place] [address], [address], 4 11:05:45 Kenalog 10 mg/mL suspension for injection 2023 024 [place] [address], [address] [place] [address], [address], 4 11:56:40 bupivacaine (PF) 0.5 % (5 mg/mL) injection solution 2023 024 [place] [address], [facility] [address], [place], [address], 4 11:56:40 Patient TargetsNo targets recorded. Patient Instructions Encounter Date Encounter Id Patient Instructions Last Modified By Organization Details Last Modified Time 12/29/2023 [id number] viscosupplementa tion treatment* [email or web address] Not available 12/29/2023 14:42:58 Reason for Referral None Reported. Problems Name Problem SNOMED Code Status Onset Date Resolution Date Notes Provider Name and Address Organization Details Recorded Time Arthritis of right knee 5539199671830 102 Active 2020 Not Available [facility] 3 23:11:00 Osteoarthr itis 323981274 Active 2021 Not Available [facility] 3 23:11:00 Osteoarthr itis of right knee joint 8769523918369 00 Active 2022 Trish hector [facility] 5 13:54:24 Pain of right knee joint 0291827933885 00 Active 2023 JEFFERSON Ruiz, [facility] [employer] [facility] 4 12:03:00 Problem Notes None recorded. Procedures Surgical History Date Name Laterality Status Provider Name and Address Organization Details Recorded Time repair of gallbladder completed Not Available [facility] 08/07/2022 23:09:41 Imaging Results None recorded. Procedure [...] mL by injection route. 2023 active [facility]: 0003- 0494- 20 Not Available Not Available [...] 21 days, for right knee osteoarth ritis. 2024 active Not Available Not Available Not Avai lable multivitami n 2020 active Not Available Not Available Not Avai lable Amiloride HCl-Hctz 06/29 completed Not Available Not Available Not Available lidocaine (PF) 10 mg/mL (1 %) injection solution In office injection administe red by the provider 09/28 completed [facility]: 0409- 4276- 17 Not Available Not Available [...] Updated DateTime 09/29/2023 167.64 cm 43.6 kg/m2 589088.94 g JENNIFER Gamble [employer] 09/29/2023 10:08:03 Date Recorded Body height Body mass index (BMI) Body weight Provider Name and Address Organization Details Last Updated DateTime 12/29/2023 170.18 cm 42.3 kg/m2 308268.94 g Antoinette Schneider ATC L [employer] 12/29/2023 09:26:46 Date Recorded Body height Body mass index (BMI) Body weight Provider Name and Address Organization Details Last Updated DateTime 03/05/2024 170.18 cm 42.3 kg/m2 092100.94 g Nicole Hall [employer] SERVIC[employer] 03/05/2024 12:02:28 Date Recorded Body height Body mass index (BMI) Body weight Provider Name and Address Organization Details Last Updated DateTime 03/12/2024 170.18 cm 42.3 kg/m2 521560.94 g Nicole Hall [employer] 03/12/2024 12:03:14 Date Recorded Body height Body mass index (BMI) Body weight Provider Name and Address Organization Details Last Updated DateTime 03/19/2024 167.64 cm 43.6 kg/m2 960450.94 luis eduardo JEFFERSON Ruiz - [facility] 03/19/2024 12:06:48 Social History Question Answer Notes LastModified by [email or web address] Details LastModified Time Tobacco Smoking Status Current Every Day Smoker Not Available [facility] 08/07/2022 23:09:12 How Much Tobacco Do You Smoke? 1 PPD [id number] Information not available 08/07/2022 How Many Years Have You Smoked Tobacco? 40 [id number] Information not available 08/07/2022 Sex: Unknown Functional Status Question Answer Note LastModified by [email or web address] Details LastModified Time What is your level of alcohol consumption? None [id number] Information not available 08/07/2022 Mental Status None recorded. Family History Relationship Description Onset Age of this Age Resolved Age Notes LastModified by Organization Details LastModified Time Unspecified Relation Family history of malignant neoplasm [id number] Not available 08/07/2022 23:09:42 Father Hypertensive disorder [...] DISEASES N SCHIZOPHRENIA N SHOULDER PAIN N BOWEL PROBLEMS N DEPRESSION (INCLUDING POST ) N STROKE/TIA N ULCERS N KNEE PAIN [...] FOOT PROBLEM N HEART VALVE DISORDERS N ALLERGIES/HAYFEVER N SOFT TISSUE INJURY N INFECTIOUS DISEASE N HEART ARRHYTHMIA N INSOMNIA N HIGH CHOLESTEROL / HYPERLIPIDEMIA N RHEUMATOID ARTHRITIS N EDEMA N CHRONIC PAIN SYNDROME N CAROTID BLOCKAGE N BACK / NECK PROBLEMS N HAVE YOU BEEN HOSPITALIZED OR SEEN IN [facility] IN THE PAST YEAR ? N BURSITIS N HERNIATED DISC N DIALYSIS N FIBROMYALGIA N OSTEOPOROSIS N ARTHRITIS Y NO SIGNIFICANT PAST MEDICAL HISTORY N PERIPHERAL NEUROPATHY N DIABETES, TYPE Y HEARTBURN / REFLUX N HEPATITIS / LIVER DISEASE N GOUT N ALZHEIMER'S DISEASE N SLEEP DISORDER N HERPES N HEADACHES/MIGRAINES N SEIZURES/EPILEPSY N VASCULAR DISEASE N Blood Disorder N HIP PAIN N DIZZINESS N HEAD TRAUMA OR INJURY N HEART DISEASE/HEART PROBLEMS N MULTIPLE SCLEROSIS N CANCER: SPECIFY N CARDIAC ARRHYTHMIA N ANESTHESIA COMPLICATIONS N ATRIAL FIBRILLATION N AUTOIMMUNE DISEASE N Past Encounters Encounter ID Performer Location Encounter Start Date Encounter Closed Date Diagnosis/Indication Diagnosis SNOMED-CT Code Diagnosis ICD10 Code Diagnosis Note [id number] Mariusz Bonilla MD [facility] [address] [facility] [address] [place], [place] [address] 11/27/2020 00:00:00 12/04/2020 10:12:43 [id number] Mariusz Bonilla MD [facility] [address] [facility] [address] [place] [address] 12/04/2020 00:00:00 12/04/2020 14:31:45 [id number] Mariusz Bonilla MD [facility] [address] [facility] [address] [place] [address] 03/30/2021 00:00:00 03/30/2021 10:53:58 [id number] Mariusz Bonilla MD [facility] [address] [facility] [address] [place] [address] 06/29/2021 00:00:00 06/29/2021 10:21:48 [id number] Mariusz Bonilla MD [facility] [address] [facility] [address] [place] [address] 09/28/2021 00:00:00 09/28/2021 10:03:06 [id number] Mariusz Bonilla MD [facility] [address] [place] [address] 12/28/2021 00:00:00 12/28/2021 10:14:35 [id number] Mariusz Bonilla MD [facility] [address] [place] [address] 03/29/2022 00:00:00 03/29/2022 10:26:14 [id number] Mariusz Bonilla MD [facility] [address] [place] [address] 06/28/2022 00:00:00 07/07/2022 13:41:38 [id number] Mariusz Bonilla MD [facility] [address] [place] [address] 09/27/2022 09:33:02 09/27/2022 10:30:35 Osteoarthritis of right knee joint 8621107711 81095 M17.11 [id number] Mariusz Bonilla MD [facility] [address] [place] [address] 12/27/2022 09:47:13 12/27/2022 10:51:59 Osteoarthritis of right knee joint 6159774764 90892 M17.11 [id number] Mariusz Bonilla MD [facility] [address] [place] [address] 03/28/2023 09:44:28 03/28/2023 10:53:45 Osteoarthritis of right knee joint 0499931524 56398 M17.11 [id number] Mariusz Bonilla MD [facility] [address] [place] [address] 06/27/2023 09:38:33 06/27/2023 10:18:09 Osteoarthritis of right knee joint 5954147623 42586 M17.11 [id number] Kurtis Gallegos MD [facility] [address] [place] [address] 09/29/2023 10:03:40 09/29/2023 10:34:11 Osteoarthritis of right knee joint 8496678822 49411 M17.11 [id number] Kurtis Gallegos MD [facility] [address] [place] [address] 12/29/2023 09:06:33 12/29/2023 10:07:58 Osteoarthritis of right knee joint 0143547717 04674 M17.11 Pain of ri ght knee joint 4576397921 46333 M25.860 [id number] Kurtis Gallegos MD [facility] [address] [place] [address] 03/05/2024 11:57:30 03/05/2024 12:40:14 Osteoarthritis of right knee joint 3515115031 75016 M17.11 Pain of ri ght knee joint 8053548624 54989 M25.324 [id number] Kurtis Gallegos MD [facility] [address] [place] [address] 03/12/2024 12:00:10 03/12/2024 12:13:30 Osteoarthritis of right knee joint 1047015147 31028 M17.11 Pain of ri ght knee joint 0285682791 71483 M25.385 [id number] Kurtis Gallegos MD [facility] [address] [place] [address] 03/19/2024 12:04:01 03/19/2024 12:11:54 Osteoarthritis of right knee joint 2793009385 23236 M17.11 Pain of ri ght knee joint 4975592787 81815 M25.561 Health Concerns Section Related Observation LastModified by Organization Detai ls LastModified Time None Recorded Concern Status LastModified by Organization Details LastModified Time None Recorded Advance Directives Directive None Recorded Payers Encounter Date Sequence Insurance Name Policy Number Policy Kincaid Covered Member ID Kincaid Member ID Guarantor Name 09/29/2023 1 [facility] [id number] Kevin Do [id number] Kevin Do 12/29/2023 1 [facility] [id number] Kevin Do [id number] Kevin Do 03/05/2024 1 [facility] [id number] Kevin Do [id number] Kevin Do 03/12/2024 1 [facility] [id number] Kevin Do [id number] Kevin Do 03/19/2024 1 [facility] [id number] Kevin Do [id number] Kevin Do Notes Date Note Type Note [...] new problems with the knee. FEI Razo [address] [place] [address], [facility] [address], [place], [address], [place] [facility] [employer] [facility] 09/29/2023 10:23:15 12/29/2023 text/html Patient returns today [...] with the patient. FEI Razo [address], [place], [address], Dang Le [facility] [employer] [facility] 12/29/2023 09:43:02 03/05/2024 text/html Patient returns for Euflexxa injection 1. That the patient brings from the specialty pharmacy for his right knee. He has severe primary osteoarthritis of the right knee joint with bqfn-ci-tztf changes in medial compartment. We have tried [...] for the 1st time. FEI Razo [address], [place], [address], [employer] 03/05/2024 12:26:12 03/12/2024 text/html The patient retu rns for Euflexxa injection 2. Right knee. He has uyao-xz-xhve changes in medial compartment essentially. He states he has not gotten much relief from the 1st injection I have advised her to give it more time. He has no erythema effusion or signs of infection today. FEI Razo [address], [place], [address], [employer] 03/12/2024 12:22:41 03/19/2024 text/html patient returns for Euflexxa injection number 3 right knee. He has sbhi-rx-ehsa changes in medial compartment and is starting to get some relief from the 1st 2 rounds of injections. Denies any effusion or swelling no erythema heat or other signs of infection states he thinks the pain is about 50% better at this point. FEI Razo [address], [place], [address], [employer]ang [employer] [facility] [employer] 03/19/2024 12:15:00
--- OUTSIDE RECORDS SUMMARY | 2024-10-30 11:06 | XMS_ITS | Encounter Summary ---
Author Organization [facility] Address [address] [place] [address] Care Team Providers Care Machine Tool Technology Instructor Name Role Phone Colby Ahumada MD Primary Care Provider [phone] Encounter Details Date Type Department Care Team (Late Contact Info) Description 10/27/2024 External Device Data [place] ABSTRACTION Provider, Abstract NO ADDRESS ON FILE Social History Tobacco Use Types Packs/Day Years Used Date Smoking Tobacco: Former Cigarettes 1 45 0 10/1976 - 10/2021 Smokeless Tobacco: Never Alcohol Use Standard Drinks/Week Comments Not Currently [...] on file Sexual Orientation Not on file documented as of this encounter Plan of Treatment Upcoming Encounters Date Type Department Care Team (Late st Contact Info) Description 12/31/2024 12:30 PM CDT Office Visit [facility] Oncology and Hematology - [place] [facility] [address] [place] [address] Gavin Swenson MD [address] [facility] [address] [place] [address] documented as of this encounter Visit Diagnoses Not on filedocumented in this encounter Care Teams Machine Tool Technology Instructor Relationship Specialty Start Date End Date Colby Ahumada MD [address] [place] [id number] PCP - General Internal Medicine 09/09/22 documented as of this encounter
--- NOTE | 2024-10-30 11:13 | ED_ITS ---
HPI - Male Genitourinary General Stated complaint: UTI symptoms Time Seen by Provider: 10/30/24 11:05 Source: patient Mode of arrival: ambulatory Limitations: no limitations History of Present Illness HPI Narrative: this is a 64-year-old male presents with some dysuria and urinary frequency with hematuria with no flank pain no abdominal pain no groin pain no fever chills no shortness of breath no chest pain no nausea vomiting. Patient recently had a workup for hematuria by his urologist which showed no acute abnormalities are chronic conditions. Onset (ago): day(s) Duration: constant Related Data Home Medications ?Medication ?Instructions ?Recorded ?Confirmed ?Last Taken ?Type lisinopril 20 2 tablet PO DAILY 11/21/19 05/21/24 Unknown History mg-hydrochlorothiazide 12.5 mg tablet metformin 500 mg tablet,extended 500 mg PO BID 11/21/19 05/21/24 Unknown History release 24 hr simvastatin 20 mg tablet 20 mg PO DAILY 11/21/19 05/21/24 Unknown History semaglutide 14 mg tablet (Rybelsus) 14 mg PO DAILY 08/27/21 05/21/24 Unknown History vitamin E (dl, acetate) 45 mg (100 45 mg PO DAILY 08/20/22 05/21/24 Unknown History unit) capsule felodipine 10 mg tablet,extended 10 mg PO DAILY 11/25/22 05/21/24 Unknown History release 24 hr Allergies Allergy/AdvReac Type Severity Reaction Status Date / Time No Known Allergies Allergy Verified 05/21/24 14:57 Review of Systems Review of Systems: All systems reviewed & are unremarkable except as noted in HPI and below PMFSH Past Medical History Medical History Colon cancer screening GERD (gastroesophageal reflux disease) KISHA (obstructive sleep apnea) Hyperlipidemia Hypertension Diabetes mellitus Surgical History Surgical History Hx of cholecystectomy 2007 Family History Family History Father Malignant neoplasm of prostate age 82 Mother Diabetes mellitus Hypertension Social History Social History Social History: Works for an [employer], 4 biologic children; current is Venita who has 2 kids of her own. Both quit tobacco 2021. Smoking packs per day: 1.5 Smoking cigarettes per day: 30.0 Years smoked: 45 Smoking pack-years: 67.50 Smoking status: Former smoker Tobacco type: cigarettes Smoking end date: 06/09/21 Substance use type: does not use Do You Feel Safe in your Home?: Yes Lack of Transportation: No Lack of Food: Never True Current Housing: I Have Housing Concerned About Future Housing: No Difficulty Paying Gas/Electric Bills: No Difficulty Paying for Meds: No Currently Unemployed: No Education: Decline to Answer Difficulty w/ Childcare or Family Care: No Living arrangements: with family Spiritual care concerns: No Exam Const: General: healthy appearing and no acute distress Nutritional Appearance: well nourished Limitations: no limitations Neck: Neck: normal visual inspection, no lymphadenopathy and no meningeal signs Chest: Chest palpation & inspection: normal inspection of the chest Resp: Effort & Inspection: normal respiratory effort Auscultation: clear to auscultation bilaterally Cardio: Rate: regular rate Rhythm: regular rhythm GI: GI Palp: Yes Soft to palpation Auscultation: normal bowel sounds : General: Yes Bladder palpation abnormal ( Suprapubic tenderness with palpation) and Yes no CVA tenderness Urinary Catheter: Urinary Catheter: urine cloudy Back/Spine/Pelvis: Back: no CVA tenderness Skin: General skin exam: normal color Rashes: no rashes Extrem: General: normal to inspection Course Course Emergency Course: urinalysis performed and reviewed patient Critical Care Time Critical Care Time Critical Care Time: No Discharge Plan Discharge Clinical Impression: UTI (urinary tract infection) Qualifiers: Urinary tract infection type: acute cystitis Hematuria presence: with hematuria Qualified Code(s): N30.01 - Acute cystitis with hematuria Patient Disposition: Home Condition: Stable Instructions: Antibiotic Form, Urinary Tract Infection in Men (ED) Patient Language: [place] Islander Prescriptions: No Action felodipine 10 mg tablet extended release 24 hr 10 mg PO DAILY vitamin E (dl, acetate) 45 mg (100 unit) capsule 45 mg PO DAILY lisinopril-hydrochlorothiazide 20-12.5 mg tablet 2 tablet PO DAILY simvastatin 20 mg tablet 20 mg PO DAILY metformin 500 mg tablet extended release 24 hr 500 mg PO BID Rybelsus 14 mg tablet 14 mg PO DAILY Follow-up/Referrals: Colby Ahumada MD [Primary Care Provider] -
--- OUTSIDE RECORDS SUMMARY | 2024-10-30 11:27 | XMS_ITS | Clinical Summary ---
Author Organization [facility] lyndsay Mcdanielsausten Address [address] [place] [address] Care Team Providers Care Stage Hand Name Role Phone Colby Ahumada MD Primary Care Provider [phone] Allergies Active Allergy Reactions Criticality Noted Date [...] Abstract 09/01/2024 11:45 AM CDT Office Visit [facility] Oncology and Hematology [facility] [address] [place] [address] Gavin Swenson MD Malignant neoplasm of lower lobe of right lung (CMS/HCC) (Primary Dx) 09/01/2024 Orders Only [facility] Oncology and Hematology [address] [place] [address] Gavin Swenson MD 08/25/2024 External Device Data STL ABSTRACTION Provider, Abstract 08/23/2024 Orders Only [facility] Oncology and Hematology [address] [place] [address] Gavin Swenson MD 08/14/2024 External Device Data [...] Description 12/31/2024 12:30 PM CDT Office Visit [facility] Oncology and Hematology - [place] [facility] [address] [place] [address] Gavin Swenson MD [address] [facility] [address] [place] [address] Health Maintenance Due Date Last [...] 2024 02/28/2022 Medical Devices Implanted Type Area Radiology Special Procedure Tech Device Identifier Shelf Expiration Date Model / Serial / Lot Sealant Progel Pleural 4ml [id number] - [id number] Implanted:Qty: 1 on 10/07/2022 by Mariusz Tsang MD at [facility] Tissue Right: Chest BARD DAVOL [id number] 02/04/2024 [id number] / / [id number] Procedures Procedure Name Priority Date/Time Associated Diagnosis [...] the time period is included. Blood us Gvain Swenson MD HEMATOLOGY ORDERABLES Final Res ult * CT CHEST W CONTRAST (08/23/2024 2:13 PM CDT) Anatomical Region Laterality Modality Chest Computed Tomogra phy Gavin Swenson MD CT ORDERABLES Final Result * (ABNORMAL) HEMOGLOBIN A1C (09/18/2022 2:18 PM CDT) HEMOGLOBIN A1C 8.0(H) <5.7 % 09/18/2022 4:26 PM CDT [facility] EST. AVG GLUCOSE, A1C 183 mg/dL 09/18/2022 4:26 PM CDT [facility] Blood Venipuncture / Unknown 09/18/2022 2:18 PM CDT 09/18/2022 3:49 PM CDT Narrative [facility] - 09/18/2022 4:26 PM CDT HGB A1C INTERPRETATION NORMAL: <5.7% PRE-DIABETES: 5.7 - 6.4% DIABETES: 6.5% OR GREATER Thao JAMES CHEMISTRY ORDERABLES Final Resu lt [facility] CLIA# [id number] [address] [facility] [place] [id number] from Last 3 Months or Most Recently Relevant to Health Maintenance Insurance [facility] [id number] [facility] [id number] RX [employer] Member Subscriber Plan / Payer (Ef fective 2022-Present) Name:Kevin Do Relation to Subscriber:Not on file Name:Tanner Kevin Subscriber ID:Not on file Date of :1960 Payer ID:Not on file Group ID:[id number] Type:RX Commercial Address: [address] Advance Directives For more information, please contact: [phone] * Full Code (Latest Code Status on File) Date Activated Date Inactivated Comments 10/07/2022 7:59 PM 10/10/2022 4:43 PM * Full Code Date Activated Date Inactivated Comments 10/07/2022 7:59 PM 10/07/2022 7:59 PM * Full Code Date Activated Date Inactivated Comments 10/07/2022 9:49 AM 10/07/2022 7:59 PM Care Teams Stage Hand Relationship Specialty Start Date End Date Colby Ahumada MD [address] [place] [address] PCP - General Internal Medicine 09/09/22
--- OUTSIDE RECORDS SUMMARY | 2024-10-30 11:27 | XMS_ITS | Encounter Summary ---
Author Organization [facility] Address [address] [place] [address] Care Team Providers Care Regulatory Lead Name Role Phone Colby Ahumada MD Primary Care Provider [phone] Encounter Details Date Type Department Care Team [...] Description 12/31/2024 12:30 PM CDT Office Visit [facility] Oncology and Hematology - [place] [address] [facility] [address] [place] [address] Gavin Swenson MD [address] [facility] [address] [place] [address] documented as of this encounter Visit Diagnoses Not on filedocumented in this encounter Care Teams Regulatory Lead Relationship Specialty Start Date End Date Colby Ahumada MD [address] [place] [phone] PCP - General Internal Medicine 09/09/22 documented as of this encounter
[2024-10-30 11:30] LABS: Appearance Urine Cloudy (Clear); Bilirubin Urine 2+ (Negative); Blood Urine 3+ (Negative); Glucose Urine UA Trace (Negative); Ketones Urine 1+ (Negative); Leukocyte Esterase Ur 3+ LEU/UL (Negative); Nitrate Urine Positive (Negative); Protein Urine 3+ (Negative); pH Urine 6.5 (5.0-8.0)
[2024-10-30 11:37] LABS: Add Urine Microscopic? YES; Bacteria Urine 2+ /hpf; Color Urine Dark Red (Yellow); RBC Urine >100 /hpf (0-2); WBC Urine 31-50 /hpf (0-3)
[2024-10-30 11:51] VITALS: BP 147/87; PULSE 95; RESP 16; TEMP 36.2; O2SAT 100
--- NOTE | 2024-11-01 12:55 | PC.NURSE ---
FINAL URINE CULTURE REPORT; ESCHERICHIA COLI; PATIENT DISCHARGED ON BACTRIM DS, CULTURE SUSCEPTIBLE. NO FURTHER ACTION OR CHANGE IN TREATMENT PER DR. SANTIAGO
== END 2024-10-30 11:51 | disposition home or self-care (01) ==
PROVIDERS: Emergency Provider Emergency Medicine; PCP Internal Medicine
DX: N30.01 Acute cystitis with hematuria (principal); I10 Essential (primary) hypertension; E11.9 Type 2 diabetes mellitus without complications; E78.5 Hyperlipidemia, unspecified; Z87.891 Personal history of nicotine dependence
CPT/HCPCS: 81001; 87077; 87086; 87088; 87186; 99283

== ENCOUNTER 2024-12-24 07:49 | Outpatient (CLI) | payer OTHER, SELFPAY ==
--- NOTE | ~2024-12-24 | CT_ITS ---
Clinical Indication: Lung cancer CT Scan of the Chest with Contrast: Technique: Contiguous sections were acquired throughout the chest after intravenous administration of 75 cc of Omnipaque 350. Dose reduction technique was used on this scan by utilizing automated exposu re control and iterative reconstruction technique. The dose-length product (DLP) was 501.22 mGy-cm. COMPARISON: 08/23/2024 Findings: There is no evidence of any significant mediastinal, hilar or axillary lymphadenopathy. There is no f illing defect in the pulmonary arterial tree to suggest pulmonary embolus. There is no evidence of ao rtic dissection or aneurysm. Extensive coronary artery calcifications are present. There is no evidence of pleural or pericardial effusion. Status post right lower lobectomy. Large calcified left upper lobe granuloma present. Images through the upper abdomen reveal diffuse nodular contour of the liver, compatible with cirrhot ic change.. Impression: No evidence of active malignancy or metastatic disease. Status post right lower lobectomy. Cirrhosis of liver. Reviewed, dictated and finalized at [facility]. Impression: No evidence of active malignancy or metastatic disease. Status post right lower lobectomy. Cirrhosis of liver.
--- OUTSIDE RECORDS SUMMARY | 2024-12-24 07:55 | XMS_ITS | Data Portability ---
Author Organization [place] [facility] [place] [facility], Main Office Address [address] [place] [address] Care Team Providers Care Shipfitters Supervisor Name Role Phone GORGE DIEGO Primary Care Provider GORGE DIEGO Referring Provider Assessment Encounter Date Assessment Date Assessment LastModified by Organization Details LastModified Time 03/12/2024 03/12/2024 The patient has severe primary [...] difficulties or questions. Not available 03/19/2024 12:14:30 11/19/2024 11/19/2024 The patient has severe primary osteoarthritis right knee joint as described. Under sterile conditions I injected the patient's right knee joint in the office today with Euflexxa injection number 1 from the specialty pharmacy. The patient tolerated the procedure well. I will see him back next week for the 2nd injection right knee. Today's x-rays show stable osteoarthritis compared to previous x-rays done more than a year ago. He voiced understanding and agreed with the above plan he will call for any further problems difficulties or questions. Not available 11/19/2024 10:19:05 11/26/2024 11/26/2024 The patient has severe primary osteoarthritis right knee joint as described. Under sterile conditions I injected the patient's right knee joint in the office today with Euflexxa injection number 2 from the specialty pharmacy. I will see him back next week for the 3rd injection right knee he voiced understanding agrees above plan call for any further problems difficulties or questions. Not available 11/26/2024 15:27:31 12/03/2024 12/03/2024 The patient has severe primary osteoarthritis right knee joint. Under sterile conditions I injected the patient's right knee joint in the office with Euflexxa injection number 3 from the specialty pharmacy. The patient tolerated procedure well. I will see him back in 6 months to do this again if necessary versus cortisone in between he will call us for needs anything else he voiced understanding and agreed with the above plan call for any further problems difficulties or questions. Not available 12/03/2024 10:38:58 Plan of Treatment Reminders Order Date Submit Date Provider Last Modified By Organization Details Last Modified Time Details Appointments None recorded. Lab None recorded. Referral None recorded. Procedures knee aspiration/ injection (PROC) 2024 025 [email or web address] In-Office Order, Internal Use Only DO Not Attach Compendium DO Not Attach Compendium, Do Not Delete/merge, [id number] 10:40:20 injection/a spiration joint/bursa (PROC) 2024 025 [email or web address] In-Office Order, Internal Use Only DO Not Attach Compendium DO Not Attach Compendium, Do Not Delete/merge, [id number] 15:18:25 injection/a spiration joint/bursa (PROC) 2024 025 [email or web address] In-Office Order, Internal Use Only DO Not Attach Compendium DO Not Attach Compendium, Do Not Delete/merge, [id number] 09:59:49 injection/a spiration joint/bursa (PROC) - in office procedure, administere d by provider 2023 024 [email or web address] In-Office Order, Internal Use Only DO Not Attach Compendium DO Not Attach Compendium, Do Not Delete/merge, [id number] 4 12:07:22 injection/a spiration joint/bursa (PROC) - in office procedure, administere d by provider 2023 024 [email or web address] In-Office Order, Internal Use Only DO Not Attach Compendium DO Not Attach Compendium, Do Not Delete/merge, [id number] 12:03:49 Surgeries None recorded. Imaging XR, knee 2024 025 [email or web address] [facility] [place], [address], [place], [address], 5 10:59:20 Medication Orders None recorded. Patient TargetsNo targets recorded. Patient InstructionsNo instructions recorded. Reason for Referral None Reported. Results Created Date Observation Date Name Description Value Unit Range Abnormal Flag Note LastModifiedBy Organization Detail LastModifiedTime 11/20/19 25 XR, knee No observ ation record ed. [email or web address] [facility] [place] [address], [place], [address], 11/19/2024 10:21:31 Result Notes None recorded. Problems Name Problem SNOMED Code Status Onset Date Resolution Date Notes Provider Name and Address Organization Details Recorded Time Arthritis of right knee 4759655071012 102 Active 2020 Not Available [employer] 3 23:11:00 Osteoarthr itis 545392191 Active 2021 Not Available [employer] 3 23:11:00 Osteoarthr itis of right knee joint 7874864578965 00 Active 2022 CORDELL Monique [facility] 5 13:54:24 Pain of right knee joint 3835378779731 00 Active 2023 JEFFERSON Ruiz [place] [facility] 12:03:00 Problem Notes None recorded. Procedures Surgical History Date Name Laterality Status Provider Name and Address Organization Details Recorded Time repair of gallbladder completed Not Available [facility] 08/07/2022 23:09:41 Imaging Results None recorded. Procedure Notes None recorded. Medical Equipment None Reported. Allergies No known drug allergies Medications Name Sig Start Date Stop Date Status Note LastModified by Organization Details LastModified Time BD Luer-Jenny Syringe 3 mL 25 x 1 1/2 USE TO INJECT B12 INTRAMUSC ULARLY ONCE A MONTH active Not Available Not Available No t Available lisinopril 20 mg-hydrochl orothiazide 12.5 mg tablet [...] completed Not Available Not Available Not Available sulfamethox azole 800 mg-trimetho prim 160 mg tablet TAKE 1 TABLET BY MOUTH EVERY 12 HOURS active Not Available Not Available No t Available doxycycline monohydrate 100 mg tablet TAKE 1 TABLET BY MOUTH TWICE DAILY active Not Available Not Available No t Available tramadol 50 mg tablet TAKE 1 TABLET BY MOUTH TWICE DAILY 11/27 completed Not Available Not Available Not Available triamcinolo ne acetonide 0.1 % topical cream APPLY CREAM EXTERNALL Y TO FACIAL RASH TWICE DAILY active Not Available Not Available No t Available ondansetron 8 mg disintegrat ing tablet [...] 2 mL by injection route. 2023 active [facility][NOTE 3]: [id number] 20 Not Available Not Available Not Available sulfacetami de sodium 10 % eye drops INSTILL 1 DROP INTO BOTH EYES 4 TIMES A DAY 11/27 completed Not Available Not Available Not Available hydrocodone 7.5 mg-acetamin ophen 325 mg tablet 03/28 completed Not Available Not Available Not Available pantoprazol e 40 mg tablet,bong yed release TAKE 1 TABLET BY MOUTH ONCE DAILY active Not Available Not Available No t Available simvastatin 20 mg tablet TAKE 1 TABLET BY MOUTH AT BEDTIME active Not Available Not Available No t Available cyanocobala min (vit B-12) 1,000 mcg/mL injection solution INJECT 1 ML SUBCUTANE OUSLY ONCE A MONTH/FriLY active Not Available Not Available No t [...] mg tablets in a dose pack TAKE BY MOUTH DIRECTED PER PACKAGE INSTRUCTI ONS active Not Available Not Available No t Available albuterol sulfate HFA 90 mcg/actuati on aerosol inhaler active Not Available Not Available Not Available ondansetron 4 mg disintegrat ing tablet PLACE 1 TO 2 TABLETS ON TOP OF TONGUE WHERE THEY WILL DISSOLVE, THEN SWALLOW BY TRANSLING UAL ROUTE THREE TIMES DAILY NEEDED active Not Available Not Available No t Available cefdinir 300 mg capsule TAKE 1 [...] administe red by the provider 09/28 completed [facility][NOTE 3]: [id number] 17 Not Available Not Available [...] THE MORNING 30 MINUTES BEFORE ANY FOOD, DRINK, OR MEDICATIO N WITH NO MORE THAN 4OZ OF PLAIN WATER active Not Available Not Available [...] and Address Organization Details Last Updated DateTime 11/19/2024 167.64 cm 43.6 kg/m2 822768.94 g Nicole Hall CNA [employer] [facility] [place] 11/19/2024 09:59:07 Date Recorded Body height Body mass index (BMI) Body weight Provider Name and Address Organization Details Last Updated DateTime 11/26/2024 167.64 cm 43.6 kg/m2 489708.94 g Nicole Hall CNA [facility] [place] 11/26/2024 15:17:34 Date Recorded Body height Body mass index (BMI) Body weight Provider Name and Address Organization Details Last Updated DateTime 12/03/2024 167.64 cm 43.6 kg/m2 939969.94 g JENNIFER Rowan [employer] [facility] [place] 12/03/2024 10:27:11 Date Recorded Body height Body mass index (BMI) Body weight Provider Name and Address Organization Details Last Updated DateTime 03/12/2024 170.18 cm 42.3 kg/m2 514649.94 g Nicole Hall CNA [employer] [facility] [place] 03/12/2024 12:03:14 Date Recorded Body height Body mass index (BMI) Body weight Provider Name and Address Organization Details Last Updated DateTime 03/19/2024 167.64 cm 43.6 kg/m2 835929.94 g Nicole NarvaezJEFFERSON umana [place] [facility] [employer] [facility] 03/19/2024 12:06:48 Social History Question Answer Notes LastModified by Organizat ion Details LastModified Time Tobacco Smoking Status Current Every Day Smoker Not Available [facility] 08/07/2022 23:09:12 What Was The Date Of Your Most Recent Tobacco Screening? 12/03/2024 [email or web address] Information not available 12/03/2024 How Much Tobacco Do You Smoke? 1 PPD [id number] Information not available 08/07/2022 How Many Years Have You Smoked Tobacco? 40 [id number] Information not available 08/07/2022 Sex: Unknown Functional Status Question Answer Note LastModified by Organizat ion Details LastModified Time What is your level of alcohol consumption? None [id number] Information not available 08/07/2022 Mental Status None recorded. Family History Relationship Description Onset Age of this Age Resolved Age Notes LastModified by Organization Details LastModified Time Unspecified Relation Family history of malignant neoplasm [id number] Not available 08/07/2022 23:09:42 Father Hypertensive disorder [email or web address] Not available 12/08 09:27:27 Mother Diabetes mellitus [email or web address] Not available 12/08 09:27:38 Mother Hypertensive disorder [email or web address] Not available 12/08 09:27:29 Medical History Condition Response BLINDNESS N KIDNEY STONES N MRSA N CARPAL TUNNEL SYNDROME N LUNG DISEASE/DISORDER N HISTORY OF DRUG ABUSE N COPD N RADIATION / CHEMOTHERAPY N SPORTS INJURY N ANKLE PAIN N BLOOD DISEASES N SCHIZOPHRENIA N SHOULDER PAIN N DEPRESSION (INCLUDING POST ) N BOWEL PROBLEMS N STROKE/TIA N KNEE PAIN N ULCERS N BENIGN PROSTATIC HYPERPLASIA N OBESITY N [...] HAVE YOU BEEN HOSPITALIZED OR SEEN IN [facility] ER IN THE PAST YEAR ? [...] SNOMED-CT Code Diagnosis ICD10 Code Diagnosis Note [id number] Mariusz Bonilla MD [facility] [place] [place] [facility] [place] [address] [place] [address] 11/27/2020 00:00:00 12/04/2020 10:12:43 [id number] Mariusz Bonilla MD [facility] [place] [address] [place] [address] 12/04/2020 00:00:00 12/04/2020 14:31:45 [id number] Mariusz Bonilla MD [facility] [place] [address] [place] [address] 03/30/2021 00:00:00 03/30/2021 10:53:58 [id number] Mariusz Bonilla MD [facility] [place] [address] [place] [address] 06/29/2021 00:00:00 06/29/2021 10:21:48 [id number] Mariusz Bonilla MD [facility] [place] [address] [place] [address] 09/28/2021 00:00:00 09/28/2021 10:03:06 [id number] Mariusz Bonilla MD [facility] [place] [address] [place] [address] 12/28/2021 00:00:00 12/28/2021 10:14:35 [id number] Mariusz Bonilla MD [facility] [place] [address] [place] [address] 03/29/2022 00:00:00 03/29/2022 10:26:14 [id number] Mariusz Bonilla MD [facility] [place] [address] [place] [address] 06/28/2022 00:00:00 07/07/2022 13:41:38 [id number] Mariusz Bonilla MD [facility] [place] [address] [place] [address] 09/27/2022 09:33:02 09/27/2022 10:30:35 Osteoarthritis of right knee joint 6983841863 08203 M17.11 [id number] Mariusz Bonilla MD [facility] [place] [address] [place] [address] 12/27/2022 09:47:13 12/27/2022 10:51:59 Osteoarthritis of right knee joint 3799280676 92470 M17.11 [id number] Mariusz Bonilla MD [facility] [place] [address] [place] [address] 03/28/2023 09:44:28 03/28/2023 10:53:45 Osteoarthritis of right knee joint 0304592649 56021 M17.11 [id number] Mariusz Bonilla MD [facility] [place] [address] [place] [address] 06/27/2023 09:38:33 06/27/2023 10:18:09 Osteoarthritis of right knee joint 6223482821 72366 M17.11 [id number] Kurtis Gallegos MD [facility] [place] [address] [place] [address] 09/29/2023 10:03:40 09/29/2023 10:34:11 Osteoarthritis of right knee joint 2169616606 77852 M17.11 [id number] Kurtis Gallegos MD [facility] [place] [address] [place] [address] 12/29/2023 09:06:33 12/29/2023 10:07:58 Osteoarthritis of right knee joint 7842839174 64082 M17.11 Pain of ri ght knee joint 1013358891 65164 M25.540 [id number] Kurtis Gallegos MD [facility] [place] [address] [place] [address] 03/05/2024 11:57:30 03/05/2024 12:40:14 Osteoarthritis of right knee joint 5668249267 34779 M17.11 Pain of ri ght knee joint 0958523776 98704 M25.237 [id number] Kurtis Gallegos MD [facility] [place] [address] [place] [address] 03/12/2024 12:00:10 03/12/2024 12:13:30 Osteoarthritis of right knee joint 4070137754 52532 M17.11 Pain of ri ght knee joint 9776312732 33446 M25.285 [id number] Kurtis Gallegos MD [facility] [place] [address] [place] [address] 03/19/2024 12:04:01 03/19/2024 12:11:54 Osteoarthritis of right knee joint 9228817511 80994 M17.11 Pain of ri ght knee joint 3000017097 45187 M25.722 [id number] Kurtis Gallegos MD [facility] [place] [address] [place] [address] 11/19/2024 09:51:12 11/19/2024 10:35:38 Osteoarthritis of right knee joint 3734418016 37856 M17.11 Pain of ri ght knee joint 3921812938 13788 M25.875 [id number] Kurtis Gallegos MD [facility] [place] [address] [place] [address] 11/26/2024 15:15:31 12/06/2024 16:43:47 Osteoarthritis of right knee joint 7145230332 40960 M17.11 Pain of ri ght knee joint 2714467540 65833 M25.581 [id number] Kurtis Gallegos MD [facility] [place] [address] [place] [address] 12/03/2024 10:18:17 12/03/2024 10:51:12 Osteoarthritis of right knee joint 5308947711 09083 M17.11 Pain of ri ght knee joint 9351450367 15817 M25.561 Health Concerns Section Related Observation LastModified by Organization Detai ls LastModified Time None Recorded Concern Status LastModified by Organization Details LastModified Time None Recorded Advance Directives Directive None Recorded Payers Insurance Date Sequence Insurance Name Policy Number Policy Kincaid Covered Member ID Kincaid Member ID Guarantor Name 11/30/2024 1 [facility] [id number] Kevin Do [id number] Kevin Do Notes Date Note Type Note Provider Name and Address Organization Details Recorded Time 03/12/2024 text/html The patient retu rns for Euflexxa injection 2. Right knee. He has ijnc-gd-aelq changes in medial compartment essentially. He states he has not gotten much relief from the 1st injection I have advised her to give it more time. He has no erythema effusion or signs of infection today. [facility] [address], [place], [address], [employer] 03/12/2024 12:22:41 03/19/2024 text/html patient returns for Euflexxa injection number 3 right knee. He has szte-wo-fjuf changes in medial compartment and is starting to get some relief from the 1st 2 rounds of injections. Denies any effusion or swelling no erythema heat or other signs of infection states he thinks the pain is about 50% better at this point. [facility] [address], [place], [address], [employer] 03/19/2024 12:15:00 11/19/2024 text/html The patient retu rns for Euflexxa injection number 1 right knee. He brings some medication from the specialty pharmacy. Eight months ago he had gel shots in the knee these worked pretty well for him he would like to repeat those today. He has severe primary osteoarthritis of the right knee joint he is due for new x-rays we will get those today as well. Mostly osteoarthritis is localized in the medial and patellofemoral compartments. Left knee feels pretty good the right knee bothers him at about a 6 on a scale of 1-10. He can not stand or walk for long periods he has trouble with squatting kneeling going up and down stairs reports crepitation aching pain a lot of the pain is medially and posteriorly. Despite conservative measures on his own and through other nonsteroidal anti-inflammatory prescriptions his symptoms continue. He denies any new trauma or injury to the knee no erythema effusion or signs of infection. He would like to have his right knee injected today with another round of gel shots. This typically works better for him than cortisone. The patient has previous medical history was reviewed in detail with him today he denies any significant new changes. [facility] [address], [place], [address], [employer] 11/19/2024 10:22:37 11/26/2024 text/html The patient retu rns for Euflexxa injection number 2 right knee. This is from the specialty pharmacy. The patient states the 1st injection he had no side effects but he really has not gotten any relief from the knee pain he has from the severe primary osteoarthritis that he has. I have advised him to give it more time and do not get to discourage quite yet. Previous x-rays last week showed pimr-na-ourx changes in the medial compartment as well as the medial facet of the patellofemoral articulation with small marginal osteophytes medially and laterally and mild varus deformity. [facility] [address], [place], [address], [employer] 11/26/2024 15:28:01 12/03/2024 text/html The patient retu rns for Euflexxa injection number 3 right knee. The patient is getting good relief now from the 1st 2 rounds of injections. He has severe primary osteoarthritis in the right knee with mild varus deformity chronic aching pain. He has kpro-tw-pger changes in medial compartment as well as the medial facet of the patellofemoral articulation with small marginal osteophytes medially than laterally. He has gotten good relief from the gel shots previously. It looks like he is starting to get there once again. [facility] [address] [place] [address], [facility] [address], [place], [address], [place] [facility] 12/03/2024 10:40:58
--- OUTSIDE RECORDS SUMMARY | 2024-12-24 07:55 | XMS_ITS | Clinical Summary ---
Author Organization [facility] lyndsay Mcdanielsausten Address [address] [place] [address] Care Team Providers Care Passenger Train Braker Name Role Phone Colby Ahumada MD Primary Care Provider [phone] Allergies Active Allergy Reactions Criticality Noted Date [...] Encounters Date Type Department Care Team Description 12/21/2024 External Device Data ST[facility] ABSTRACTION Provider, Abstract 11/23/2024 External Device Data [facility] ABSTRACTION Provider, Abstract 10/28/2024 External Device Data [facility] ABSTRACTION Provider, Abstract 10/28/2024 External Device Data [facility] ABSTRACTION Provider, [...] drink = 0.6 oz pur e alcohol) Sex and Gender Information Value Date Recorded [...] Description 12/31/2024 12:30 PM CDT Office Visit [facility] On[facility] and Hematology - [place] [address] [place] [address] Gavin Swenson MD [address] [place] [address] Health Maintenance Due Date Last [...] DIABETES HBA1C Q 6 MONTHS 03/20/2023 09/18/2022 Preventative Visit- Commercial 06/09/2024 INFLUENZA VACCINE (#1) 2025 02/28/2022 Medical Devices Implanted Type Area Cryptologic Technician Technical Device Identifier Shelf Expiration Date Model / Serial / Lot Sealant Progel Pleural 4ml [id number] - [id number] Implanted:Qty: 1 on 10/07/2022 by Mariusz Tsang MD at [facility] Tissue Right: Chest BARD DAVOL [id number] 02/04/2024 [id number] / / [id number] Procedures Procedure Name Priority Date/Time Associated Diagnosis Comments HEMOGLOBIN A1C Routine 09/18/2022 2:18 PM CDT from Last 3 Months or Most Recently Relevant to Health Maintenance Results * (ABNORMAL) HEMOGLOBIN A1C (09/18/2022 2:18 PM CDT) HEMOGLOBIN A1C 8.0(H) <5.7 % 09/18/2022 4:26 PM CDT [facility] EST. AVG GLUCOSE, A1C 183 mg/dL 09/18/2022 4:26 PM CDT [facility] Blood Venipuncture / Unknown 09/18/2022 2:18 PM CDT 09/18/2022 3:49 PM CDT Narrative [facility] - 09/18/2022 4:26 PM CDT HGB A1C INTERPRETATION NORMAL: <5.7% PRE-DIABETES: 5.7 - 6.4% DIABETES: 6.5% OR GREATER Thao Simon [facility] CHEMISTRY ORDERABLES Final Resu lt [facility] CLIA# [id number] [address] [place] [address] from Last 3 Months or Most Recently Relevant to Health Maintenance Insurance [place] [id number] [place] [id number] RX [employer] Member Subscriber Plan / Payer (Ef fective 2022-Present) Name:Kevin Do Relation to Subscriber:Not on file Name:Kevin Do Subscriber ID:Not on file Date of :1960 Payer ID:Not on file Group ID:[id number] Type:RX Commercial Address: [address] Advance Directives For more information, please contact: [phone] * Full Code (Latest Code Status on File) Date Activated Date Inactivated Comments 10/07/2022 7:59 PM 10/10/2022 4:43 PM * Full Code Date Activated Date Inactivated Comments 10/07/2022 7:59 PM 10/07/2022 7:59 PM * Full Code Date Activated Date Inactivated Comments 10/07/2022 9:49 AM 10/07/2022 7:59 PM Care Teams Passenger Train Braker Relationship Specialty Start Date End Date Colby Ahumada MD [address] [place] [address] PCP - General Internal Medicine 09/09/22
--- OUTSIDE RECORDS SUMMARY | 2024-12-24 07:55 | XMS_ITS | Clinical Summary ---
Author Organization [facility] Address [address] [place] [address] Care Team Providers Care Frame Welder Cargo Utility Trailers Name Role Phone Colby Ahumada MD Primary Care Provider [phone] Social History Tobacco Use Types Packs/Day Years [...] Td Vaccines ( 1 - Tdap) 1981 Pneumococcal Vaccine: 50+ Ye ars (1 of 1 - PCV) 2012 Zoster Vaccines (1 of 2) 2012 COVID-19 Vaccine ( - 2023-2 5 season) 2024 RSV Immunization or 60+ Years (1 [...] complete this topic Insurance [employer] Care Teams Frame Welder Cargo Utility Trailers Relationship Specialty Start Date End Date Colby Ahumada MD [address] [place] [address] PCP - General INTERNAL MEDICINE 12/28/19
[2024-12-24 08:39] LABS: Estimated Glomerular Filt Rate 56
== END 2024-12-24 07:50 | disposition home or self-care (01) ==
PROVIDERS: PCP Internal Medicine; Visit Provider Internal Medicine Hematology & Oncology
DX: K74.60 Unspecified cirrhosis of liver (principal); C34.31 Malignant neoplasm of lower lobe, right bronchus or lung
CPT/HCPCS: 36415; 71260; 80053; 85025; Q9967

== ENCOUNTER 2024-12-24 08:52 | Outpatient (CLI) | payer OTHER, SELFPAY ==
--- OUTSIDE RECORDS SUMMARY | 2024-12-24 08:55 | XMS_ITS | Clinical Summary ---
Author Organization [facility] lyndsay Mcdanielsausten Address [address] [place] [address] Care Team Providers Care Section Housekeeper Name Role Phone Colby Ahumada MD Primary Care Provider [phone] Allergies Active Allergy Reactions Criticality Noted Date [...] Description 12/31/2024 12:30 PM CDT Office Visit [facility] Oncology and Hematology - [place] [address] [place] [address] Gavin Swenson MD [address] [facility] [address] [place] [address] Health Maintenance Due Date Last [...] 2025 02/28/2022 Medical Devices Implanted Type Area Petroleum Sampler Device Identifier Shelf Expiration Date Model / Serial / Lot Sealant Progel Pleural 4ml [id number] - [id number] Implanted:Qty: 1 on 10/07/2022 by Mariusz Tsang MD at [facility] Tissue Right: Chest BARD DAVOL [id number] 02/04/2024 [id number] / / [id number] Procedures Procedure Name Priority Date/Time Associated Diagnosis Comments HEMOGLOBIN A1C Routine 09/18/2022 2:18 PM CDT from Last 3 Months or Most Recently Relevant to Health Maintenance Results * (ABNORMAL) HEMOGLOBIN A1C (09/18/2022 2:18 PM CDT) HEMOGLOBIN A1C 8.0(H) <5.7 % 09/18/2022 4:26 PM CDT [facility] EST. AVG GLUCOSE, A1C 183 mg/dL 09/18/2022 4:26 PM CDT [facility] Blood Venipuncture / Unknown 09/18/2022 2:18 PM CDT 09/18/2022 3:49 PM CDT Narrative [facility] - 09/18/2022 4:26 PM CDT HGB A1C INTERPRETATION NORMAL: <5.7% PRE-DIABETES: 5.7 - 6.4% DIABETES: 6.5% OR GREATER Thao Simon [facility] CHEMISTRY ORDERABLES Final Resu lt [facility] CLIA# [id number] [address] [place] [address] from Last 3 Months or Most Recently Relevant to Health Maintenance Insurance [place] [id number] [place] [id number] RX [employer] Member Subscriber Plan / Payer (Ef fective 2022-Present) Name:Kevin Do Relation to Subscriber:Not on file Name:Kevin Do Subscriber ID:Not on file Date of :1960 Payer ID:Not on file Group ID:[id number] Type:RX Commercial Address: [address] Advance Directives For more information, please contact: [phone] * Full Code (Latest Code Status on File) Date Activated Date Inactivated Comments 10/07/2022 7:59 PM 10/10/2022 4:43 PM * Full Code Date Activated Date Inactivated Comments 10/07/2022 7:59 PM 10/07/2022 7:59 PM * Full Code Date Activated Date Inactivated Comments 10/07/2022 9:49 AM 10/07/2022 7:59 PM Care Teams Section Housekeeper Relationship Specialty Start Date End Date Colby Ahumada MD [address] [place] [address] PCP - General Internal Medicine 09/09/22
--- OUTSIDE RECORDS SUMMARY | 2024-12-24 08:55 | XMS_ITS | Clinical Summary ---
Author Organization [facility] Address [address] [place] [address] Care Team Providers Care Upstairs Maid Name Role Phone Colby Ahumada MD Primary Care Provider [phone] Social History Tobacco Use Types Packs/Day Years [...] complete this topic Insurance [employer] Care Teams Upstairs Maid Relationship Specialty Start Date End Date Colby Ahumada MD [address] [place] [address] PCP - General INTERNAL MEDICINE 12/28/19
[2024-12-24 09:14] LABS: Hematocrit 39.6 % (42.0-52.0); Hemoglobin 13.0 g/dL (14.0-18.0); Immature Granulocyte Percent A 0.5 % (0-0.5); Lymphocytes Absolute Auto 1.19 K/mm3 (0.9-3.2); Mean Corpuscular HGB Conc 32.8 g/dl (32-36); Mean Corpuscular Hemoglobin 31.3 pg (26-34); Mean Corpuscular Volume 95.4 fl (80-100); Nucleated Red Blood Cells Absolute Auto 0.000 K/mm3 (0.0-0.012); Nucleated Red Blood Cells Perc 0.0 % (0.0-0.2); Platelet Count Result 96 k/mm3 (150-375); Red Blood Count 4.15 M/mm3 (4.6-6.20); White Blood Count 4.0 K/mm3 (4.5-10.0)
[2024-12-24 11:13] LABS: Alanine Aminotransferase 45 U/L (6-50); Albumin Level 4.2 g/dL (3.5-5.1); Alkaline Phosphatase 84 U/L (38-126); Anion Gap 10 mmol/L (4-12); Aspartate Amino Transferase 47 U/L (17-59); Bilirubin,Total 0.4 mg/dL (0.2-1.3); Blood Urea Nitrogen 22 mg/dL (9-20); Calcium 9.8 mg/dL (8.4-10.2); Carbon Dioxide 31 mmol/L (22-30); Chloride 97 mmol/L (98-107); Estimated Glomerular Filt Rate 57; Glucose 124 mg/dL (65-110); Potassium 3.7 mmol/L (3.4-5.0); Sodium 138 mmol/L (137-145); Total Protein 7.6 g/dL (6.3-8.2)
== END 2024-12-24 08:53 | disposition home or self-care (01) ==
LOC: ANHLAB 08:52
PROVIDERS: PCP Internal Medicine; Visit Provider Internal Medicine Hematology & Oncology
DX: C34.31 Malignant neoplasm of lower lobe, right bronchus or lung (principal)
CPT/HCPCS: 36415; 80053; 85025